=== PATIENT | female | born 1940 | race Caucasian/White ===

== ENCOUNTER → 2020-03-07 | Outpatient (CLI) | payer MEDICARE, SELFPAY | END | disposition home or self-care (01) | LOC: LABSPEC 16:09 | PROVIDERS: Visit Provider Urology | DX: N39.0 Urinary tract infection, site not specified (principal) | CPT/HCPCS: 87086; 87088; 87186 ==

== ENCOUNTER → 2020-05-13 | Outpatient (CLI) | payer MEDICARE, SELFPAY | END | disposition home or self-care (01) | PROVIDERS: Referring Provider Urology; Visit Provider Urology | DX: N39.0 Urinary tract infection, site not specified (principal) | CPT/HCPCS: 87086; 87088; 87186 ==

== ENCOUNTER → 2021-03-21 11:17 | Outpatient (CLI) | payer MEDICARE, SELFPAY ==
[2021-03-21 13:09] LABS: Erythrocyte Sedimentation Rate 44 mm/hr (0-30)
[2021-03-21 13:34] LABS: CRP 6.24 mg/L (0.0-3.0); Rheumatoid Factor < 10.0 IU/mL (<15)
[2021-03-24 13:26] LABS: ANTINUCLEAR ANTIBODIES DIRECT Negative (Negative)
[2021-03-27 00:07] LABS: Aspirgillus flavus Negative (Neg:<1:1); Aspirgillus fumigatus Negative (Neg:<1:1); Aspirgillus niger Negative (Neg:<1:1); Cytoplasmic Ab (C-ANCA) <1:20 titer (Neg:<1:20)
[2021-03-27 08:41] LABS: CCP IgG Antibodies 6 units (0-19); Perinuclear Ab (P-ANCA) <1:20 titer (Neg:<1:20)
== END ==
PROVIDERS: Referring Provider Internal Medicine Critical Care Medicine; Visit Provider Internal Medicine Critical Care Medicine
DX: J84.10 Pulmonary fibrosis, unspecified (principal)
CPT/HCPCS: 36415; 85652; 86038; 86140; 86200; 86225; 86235; 86256; 86431; 86606

== ENCOUNTER → 2021-04-08 10:36 | Outpatient (CLI) | payer MEDICARE, SELFPAY ==
--- NOTE | 2021-04-08 13:49 | PFTCOMP_ITS ---
COMPLETE PULMONARY FUNCTION TEST INTERPRETATION Brief HPI: Patient is an 80 year old female, currently under the care of myself, who presents to [facility] for complete pulmonary function tests secondary to diagnosis of pulmonary fibrosis. Respiratory therapist reports good effort and reproducible results. Interpretation: Forced expiration spirometry shows no large airways obstructive ventilatory defect with an FEV1 of 80% predicted. There is no significant bronchodilator response by strict ATS criteria. Spirograms are of good quality and plateau normally. The respiratory flow volume loop shows a normal pattern. Lung volumes by body plethysmography show a decreased total lung capacity at 3.49 L, 77% predicted. All other lung volumes are reduced symmetrically. Diffusion capacity by carbon monoxide is decreased at 50% predicted. The airway resistance is normal. No previous pulmonary function tests were available for review. Impression: Mild restrictive ventilatory defect with a disproportionate reduction in diffusing capacity
== END ==
PROVIDERS: Referring Provider Internal Medicine Critical Care Medicine; Visit Provider Internal Medicine Critical Care Medicine
DX: J84.10 Pulmonary fibrosis, unspecified (principal)
CPT/HCPCS: 94060; 94726; 94729

== ENCOUNTER → 2021-04-17 12:53 | Outpatient (CLI) | payer MEDICARE, SELFPAY ==
[2021-04-17 13:20] VITALS: PULSE 100; PULSE 103; PULSE 106; PULSE 107; PULSE 86; PULSE 92; PULSE 97; O2SAT 91; O2SAT 92; O2SAT 94; O2SAT 95; O2SAT 98
--- NOTE | 2021-04-18 07:44 | PCM.PSN.6M ---
PSN 6 Minute Walk Test 6 Minute Walk Test 6 Minute Walk Test: 6 Minute Walk Test PSN:6-Minute Walk Test Start: 04/17/21 13:19 Freq: Status: Active Protocol: RESP.6MINW Document 04/17/21 13:20 DARREN (Rec: 04/17/21 13:22 DARREN [id number]) 6 Minute Walk Test Date Performed 04/17/21 Time Performed 13:00 Height 5 ft 3 in Weight: 63.503 kg Weight in Pounds 140.[address]: Feroz Don Assistive device used: None Pre-test Oxygen Delivery Method Room Air Pulse Ox (%) 98 Pulse Rate (60-100 beats/min) 86 Dyspnea Tanya Scale (0-10) 0 Exertion Tanya Scale (6-20) 6 1st minute Oxygen Delivery Method Room Air Pulse Ox (%) 92 Pulse Rate (60-100 beats/min) 97 2nd minute Oxygen Delivery Method Room Air Pulse Ox (%) 94 Pulse Rate (60-100 beats/min) 100 3rd minute Oxygen Delivery Method Room Air Pulse Ox (%) 91 Pulse Rate (60-100 beats/min) 106 H 4th minute Oxygen Delivery Method Room Air Pulse Ox (%) 95 Pulse Rate (60-100 beats/min) 106 H 5th minute Oxygen Delivery Method Room Air Pulse Ox (%) 92 Pulse Rate (60-100 beats/min) 103 H 6th minute Oxygen Delivery Method Room Air Pulse Ox (%) 94 Pulse Rate (60-100 beats/min) 107 H Dyspnea Tanya Scale (0-10) 0 Exertion Tanya Scale (6-20) 11 Post-test Oxygen Delivery Method Room Air Pulse Ox (%) 94 Pulse Rate (60-100 beats/min) 92 Full Laps Walked 20 Partial Lap, Number of Tiles Walked 0 Total Distance Walked (ft) 1180 Interpretation Interpretation: The patient ambulated 1180 feet over the course of 6 minutes beginning on room air without assistive devices. Pretesting oxygen saturation was noted to be 98% on room air. With ambulation, the nicole oxygen saturation was 91%. This represents a significant exertional oxygen desaturation. Recommendations Recommendations: There is no indication for the use of supplemental oxygen at this time. However, close interval follow-up was recommended, given the degree of oxygen desaturation noted during this study.
== END ==
PROVIDERS: Referring Provider Internal Medicine Critical Care Medicine; Visit Provider Internal Medicine Critical Care Medicine
DX: J84.10 Pulmonary fibrosis, unspecified (principal)
CPT/HCPCS: 94618

== ENCOUNTER → 2021-11-20 | Outpatient (CLI) | payer MEDICARE, SELFPAY ==
--- NOTE | 2021-11-20 15:24 | PFTCOMP ---
COMPLETE PULMONARY FUNCTION TEST INTERPRETATION Brief HPI: Patient is an 81-year-old female, currently under the care of myself, who presents to [facility] for complete pulmonary function tests secondary to diagnosis of pulmonary fibrosis. Respiratory therapist reports good effort and reproducible results. Interpretation: Forced expiration spirometry shows no large airways obstructive ventilatory defect with an FEV1 of 89% predicted. There is no significant bronchodilator response by strict ATS criteria. Spirograms are of good quality and plateau normally. The respiratory flow volume loop shows a normal pattern. Lung volumes by body plethysmography show a mildly decreased total lung capacity at 3.13 L, 76% predicted. All other lung volumes are reduced symmetrically. Diffusion capacity by carbon monoxide is decreased at 65% predicted. The airway resistance is normal. Compared to previous pulmonary function tests from 04/08/2021, there has been no significant change. Impression: Mild restrictive ventilatory defect with a symmetric reduction diffusing capacity. This is relatively stable compared to previous testing.
== END | disposition home or self-care (01) ==
LOC: PSN 10:27
PROVIDERS: Referring Provider Internal Medicine Critical Care Medicine; Visit Provider Internal Medicine Critical Care Medicine
DX: J84.10 Pulmonary fibrosis, unspecified (principal)
CPT/HCPCS: 94060; 94726; 94729

== ENCOUNTER → 2021-11-24 | Outpatient (CLI) | payer MEDICARE, SELFPAY ==
[2021-11-24 12:42] VITALS: PULSE 76; PULSE 82; PULSE 88; PULSE 93; PULSE 94; PULSE 97; PULSE 98; O2SAT 95; O2SAT 96; O2SAT 97
--- NOTE | 2021-11-26 11:58 | PCM.PSN.6M ---
PSN 6 Minute Walk Test 6 Minute Walk Test 6 Minute Walk Test: 6 Minute Walk Test PSN:6-Minute Walk Test Start: 11/24/21 12:41 Freq: Status: Active Protocol: RESP.6MINW Document 11/24/21 12:42 [facility] (Rec: 11/24/21 12:45 [facility] [id number]) 6 Minute Walk Test Date Performed 11/24/21 Time Performed 12:30 Height 5 ft 2 in Weight: 140 lb Weight in Pounds 140.[address]: Feroz Don Assistive device used: None Pre-test Pulse Ox (%) 96 Pulse Rate (60-100 beats/min) 76 Dyspnea Tanya Scale (0-10) 0 Exertion Tanya Scale (6-20) 6 1st minute Oxygen Delivery Method Room Air Pulse Ox (%) 97 Pulse Rate (60-100 beats/min) 88 2nd minute Oxygen Delivery Method Room Air Pulse Ox (%) 96 Pulse Rate (60-100 beats/min) 93 3rd minute Oxygen Delivery Method Room Air Pulse Ox (%) 95 Pulse Rate (60-100 beats/min) 94 4th minute Oxygen Delivery Method Room Air Pulse Ox (%) 96 Pulse Rate (60-100 beats/min) 97 5th minute Oxygen Delivery Method Room Air Pulse Ox (%) 96 Pulse Rate (60-100 beats/min) 97 6th minute Oxygen Delivery Method Room Air Pulse Ox (%) 95 Pulse Rate (60-100 beats/min) 98 Dyspnea Tanya Scale (0-10) 0 Exertion Tanya Scale (6-20) 10 Post-test Oxygen Delivery Method Room Air Pulse Ox (%) 97 Pulse Rate (60-100 beats/min) 82 Full Laps Walked 18 Partial Lap, Number of Tiles Walked 28 Total Distance Walked (ft) 1090 Interpretation Interpretation: The patient ambulated 1090 feet over the course of 6 minutes beginning on room air without assistive devices. Pretesting oxygen saturation was noted to be 96% on room air. With ambulation, the nciole oxygen saturation was 95%. There was no significant exertional oxygen desaturation. Recommendations Recommendations: There is no indication for the use of supplemental oxygen at this time.
== END | disposition home or self-care (01) ==
LOC: PSN 12:17
PROVIDERS: Referring Provider Internal Medicine Critical Care Medicine; Visit Provider Internal Medicine Critical Care Medicine
DX: J84.10 Pulmonary fibrosis, unspecified (principal)
CPT/HCPCS: 94618

== ENCOUNTER → 2021-12-03 | Outpatient (CLI) | payer MEDICARE, SELFPAY ==
[2021-12-03 18:24] LABS: Erythrocyte Sedimentation Rate 24 mm/hr (0-30)
[2021-12-03 18:49] LABS: AST(SGOT) 52 U/L (15-37); Alanine Aminotransfer ALT/SGPT 49 U/L (13-56); Albumin, Serum 3.6 g/dL (3.2-5.0); Alkaline Phosphatase 67 U/L (45-117); Bilirubin, Direct 0.12 mg/dL (0.00-0.30); GGTP 16 U/L (5-55); Globulin 4.7 g/dL (2.2-4.2); Protein, Total 8.3 g/dL (6.4-8.2)
[2021-12-05 14:08] LABS: Immunoglobulin A 289 mg/dL (64-422); Immunoglobulin G 1813 mg/dL (586-1602); PROEL- A/G Ratio 0.9 (0.7-1.7); PROEL- Albumin 3.6 g/dL (2.9-4.4); PROEL- Alpha-1 Globulin 0.3 g/dL (0.0-0.4); PROEL- Alpha-2 Globulin 0.8 g/dL (0.4-1.0); PROEL- Beta Globulin 1.1 g/dL (0.7-1.3); PROEL- Gamma Globulin 1.8 g/dL (0.4-1.8); PROEL- TOTAL PROTEIN 7.6 g/dL (6.0-8.5)
[2021-12-05 15:18] LABS: Anti-Mitochondrial AB <20.0 Units (0.0-20.0)
[2021-12-05 15:19] LABS: Immunoglobulin M 161 mg/dL (26-217)
== END | disposition home or self-care (01) ==
LOC: MTLAB 14:37
PROVIDERS: Referring Provider Internal Medicine Gastroenterology; Visit Provider Internal Medicine Gastroenterology
DX: K75.9 Inflammatory liver disease, unspecified (principal)
CPT/HCPCS: 36415; 80076; 82784; 82977; 83516; 84165; 85652; 86334

== ENCOUNTER → 2021-12-26 | Outpatient (CLI) | payer MEDICARE, SELFPAY ==
--- NOTE | 2021-12-26 09:23 | US_ITS ---
STUDY: ABDOMINAL ULTRASOUND - RIGHT UPPER QUADRANT REASON FOR VISIT: Female, 81 years old FATTY LIVER TECHNIQUE: Ultrasound evaluation of the right upper quadrant was performed with real-time and static moncada-scale imaging. TECHNICAL QUALITY: Adequate. COMPARISON: None. FINDINGS: Liver: The liver measures 12.2 cm. There is normal echogenicity of the liver. The bile ducts are within normal limits. There is hepatic color flow. The direction of portal flow is hepatopetal. There is no demonstrated mass lesion. Gallbladder: Normal distended gallbladder. The gallbladder wall measures 1.8 mm. There is a negative sonographic Mancini''s sign. There is no pericholecystic fluid. There are no gallstones. Common Bile Duct (C.B.D.): The common bile duct measures 2.2 mm. Pancreas: Normal size of the head, body and tail of the pancreas. There is increased echogenicity of the pancreas. There is no demonstrated pancreatic mass or cyst. Right Kidney: Normal size of the right kidney. The right kidney measures 11 cm x 3.6 cm x 4.2 cm. Normal renal cortex. The right cortex measures 1.3 cm. There is no demonstrated renal mass or cyst. There is no right hydronephrosis. US/Abdomen Limited IMPRESSION: Normal right upper quadrant ultrasound examination. Electronically Signed: Nick Jaquez MD at 10:35 EDT ,
--- NOTE | 2021-12-26 09:23 | US_ITS ---
STUDY: ABDOMINAL ULTRASOUND - ELASTOGRAPHY REASON FOR VISIT: Female, 81 years old. History of fatty infiltration of the liver. TECHNIQUE: Liver stiffness measurements were obtained on a [employer] RS 85 ultrasound machine using a CA 1-7 probe following the SRU guidelines. 3 measurements were obtained using a 2-D-SWE method. The IQR/M was 21 % suggesting a quality data set. TECHNICAL QUALITY: Adequate. COMPARISON: Comparison is made with prior ultrasound of the right upper quadrant done earlier today. FINDINGS: Liver: There is no demonstrated mass lesion. Median liver stiffness measured 10.5 kPa. US/Elastography Parenchyma/Organ IMPRESSION: Liver stiffness measures 10.5 kPa compatible with F2-F3 (Mild to moderate liver fibrosis) Metavir score. Electronically Signed: Nick Jaquez MD at 10:36 EDT ,
== END | disposition home or self-care (01) ==
PROVIDERS: Visit Provider Internal Medicine Gastroenterology
DX: K76.0 Fatty (change of) liver, not elsewhere classified (principal)
CPT/HCPCS: 76705; 76981

== ENCOUNTER → 2022-06-01 | Outpatient (CLI) | payer MEDICARE, SELFPAY ==
--- NOTE | 2022-06-01 08:36 | RAD_ITS ---
STUDY: X-RAY - ESOPHAGUS (BARIUM SWALLOW) WITH FLUOROSCOPY REASON FOR EXAM: Female, 81 years old. DYSPHAGIA TECHNIQUE: 19 view(s) of the esophagus were obtained following swallowing of barium. FLUOROSCOPY TIME (if supplied): (26 seconds) minutes/seconds COMPARISON: None. FINDINGS: There is no demonstrated esophageal foreign body. There is no demonstrated stricture or mucosal abnormality. Normal gastroesophageal junction, without a demonstrated hiatal hernia. Tertiary contractions of the mid esophagus. The patient ingested a 12 mm tablet of barium without any difficulty. There is atherosclerotic calcification of the aortic arch with tortuosity of the descending aorta. Normal visualized pulmonary parenchyma. There are diffuse degenerative changes of the visualized thoracic spine. RAD/Esophagus Dual Contrast IMPRESSION: History contraction of the mid esophagus. The patient ingested a 12 mm tablet of barium without any difficulty. Electronically Signed: Nick Jaquez MD at 14:28 EST ,
== END | disposition home or self-care (01) ==
LOC: RAD 08:33
PROVIDERS: Visit Provider Otolaryngology
DX: R13.10 Dysphagia, unspecified (principal)
CPT/HCPCS: 74221

== ENCOUNTER → 2022-06-29 | Outpatient (CLI) | payer MEDICARE, SELFPAY ==
[2022-06-29 12:23] LABS: Hematocrit 42.9 % (37-47); Hemoglobin 14.1 g/dL (12.0-15.0); Mean Corp Hgb Conc 32.9 g/dL (32-36); Mean Corpuscular Hgb 29.6 pg (27.0-32.0); Mean Corpuscular Volume 89.9 fL (81-99); Mean Platelet Vol. 9.6 fl (6.2-12.0); Platelet Count 239 K/mm3 (150-450); RBC Distribution Width CV 12.7 % (11.6-14.6); RBC Distribution Width SD 42.4 fl (35.1-43.9); Red Blood Count 4.77 M/mm3 (4.2-5.4); White Blood Count 10.7 K/mm3 (4.4-11.0)
[2022-06-29 12:33] LABS: International Normalized Ratio 1.1; Prothrombin Time (Protime)PT. 14.3 SECONDS (11.7-14.9)
[2022-06-29 12:34] LABS: Partial Thromboplast Time 29.7 Seconds (24.1-36.2)
[2022-06-29 12:58] LABS: ALB/GLOB Ratio 0.6 RATIO (0.9-2.4); AST(SGOT) 70 U/L (15-37); Alanine Aminotransfer ALT/SGPT 39 U/L (13-56); Albumin, Serum 3.3 g/dL (3.2-5.0); Alkaline Phosphatase 59 U/L (45-117); Anion Gap 9 (5-15); BUN 14 mg/dL (7-18); BUN/Creat Ratio 16.1 RATIO (10-20); Calcium,Total 9.8 mg/dL (8.5-10.1); Chloride 102 mmol/L (98-107); Creatinine, Serum 0.87 mg/dL (0.55-1.02); EST Glomerular Filtration Rate 66 mL/min (>60); Est Glom Filt Rate - Afr Amer 80 mL/min (>60); Globulin 5.4 g/dL (2.2-4.2); Glucose 110 mg/dL (74-106); Potassium 3.6 mmol/L (3.5-5.1); Protein, Total 8.7 g/dL (6.4-8.2); Sodium Level 139 mmol/L (136-145)
[2022-06-30 14:41] LABS: AFP, Tumor Marker < 1.8 ng/mL (0.0-8.7)
== END | disposition home or self-care (01) ==
PROVIDERS: Internal Medicine Gastroenterology; Referring Provider Internal Medicine Critical Care Medicine; Visit Provider Internal Medicine Critical Care Medicine
DX: K74.00 Hepatic fibrosis, unspecified (principal); K76.0 Fatty (change of) liver, not elsewhere classified
CPT/HCPCS: 36415; 80053; 82105; 85027; 85610; 85730; 94667

== ENCOUNTER → 2022-06-30 | Outpatient (CLI) | payer MEDICARE, SELFPAY | END | disposition home or self-care (01) | LOC: LABSPEC 10:43 | PROVIDERS: Referring Provider Internal Medicine Critical Care Medicine; Visit Provider Internal Medicine Critical Care Medicine | DX: J84.10 Pulmonary fibrosis, unspecified (principal) | CPT/HCPCS: 87070; 87205 ==

== ENCOUNTER → 2022-07-21 | Outpatient (CLI) | payer MEDICARE, SELFPAY ==
--- NOTE | 2022-07-22 07:34 | PFT ---
INTRODUCTION: The patient is an 81-year-old female that presents for pulmonary function studies secondary to a diagnosis of pulmonary fibrosis. Respiratory therapy reported good patient effort. Bronchodilators were used during testing. INTERPRETATION: Forced expiration spirometry demonstrates no evidence of a large airways obstructive ventilatory defect. There was no significant response to aerosolized bronchodilators. Spirograms are of good quality and plateau normally. Body plethysmography was performed and revealed a decreased TLC to 3.12 L, 72% of predicted, indicative of a mild restrictive ventilatory impairment. Diffusing capacity by single breath CO was reduced at 48% of predicted. IMPRESSION: Mild restrictive ventilatory impairment with disproportionate reduction in diffusing capacity. There has been a 26% reduction in DLCO when compared to PFTs from October 2021.
== END | disposition home or self-care (01) ==
LOC: PSN 09:17
PROVIDERS: Visit Provider Internal Medicine Critical Care Medicine
DX: J84.10 Pulmonary fibrosis, unspecified (principal)
CPT/HCPCS: 94060; 94726; 94729

== ENCOUNTER → 2022-07-30 | Outpatient (CLI) | payer MEDICARE, SELFPAY ==
[2022-07-30 11:38] LABS: Erythrocyte Sedimentation Rate 55 mm/hr (0-30)
== END | disposition home or self-care (01) ==
LOC: PAVLAB 11:19
PROVIDERS: Referring Provider Nurse Practitioner Acute Care; Visit Provider Nurse Practitioner Acute Care
DX: R05.3 Chronic cough (principal)
CPT/HCPCS: 36415; 85652; 86140

== ENCOUNTER → 2022-08-08 | Outpatient (CLI) | payer MEDICARE, SELFPAY ==
--- NOTE | 2022-08-08 08:48 | CT_ITS ---
INDICATION: pulmonary fibrosis -- high resolution cuts please EXAMINATION: CT CHEST WITHOUT CONTRAST - CT Chest W/O Contrast Injection TECHNIQUE: Helically acquired images were obtained of the chest. A radiation dose optimization technique was used for this scan. IV Contrast dosage and agent: None. RADIATION DOSAGE (If Supplied By Facility): CTDIvol = ( 7.71 ) mGy, DLP = ( 229.21 ) mGycm COMPARISON: None. FINDINGS: LUNGS, PLEURA AND LARGE AIRWAYS: Cystic changes/honeycombing pattern in both lung apices worse on the right side and to lesser extent in the lower lungs. Combined paraseptal and centrilobular emphysema. Mild central and left lower lobe bronchiectatic changes. No focal infiltrate is seen. No definite focal pulmonary nodules. THYROID: No thyroid lesions. HEART AND PERICARDIUM: Heart size is normal. No pericardial effusion. CORONARY ARTERIES: Coronary artery calcification not seen. VESSELS: Atherosclerotic calcifications and mild tortuosity of the thoracic aorta. MEDIASTINUM AND [place]: No mediastinal or hilar adenopathy. Esophagus is unremarkable. Small hiatal hernia. UPPER ABDOMEN: No acute pathology. BONES: No suspicious lytic or blastic abnormality. CT/Chest without Contrast IMPRESSION: 1. Panlobular emphysema. 2. Mild to moderate pulmonary fibrosis. 3. No mass, adenopathy or focal acute pulmonary infiltrate. Electronically Signed: Jones Perez MD at 15:21 EDT ,
== END | disposition home or self-care (01) ==
PROVIDERS: Referring Provider Nurse Practitioner Acute Care; Visit Provider Nurse Practitioner Acute Care
DX: J84.10 Pulmonary fibrosis, unspecified (principal); J43.1 Panlobular emphysema
CPT/HCPCS: 71250

== ENCOUNTER → 2023-01-19 | Outpatient (CLI) | payer MEDICARE, SELFPAY ==
[2023-01-19 17:50] LABS: Prothrombin Time (Protime)PT. 13.6 SECONDS (11.7-14.9)
[2023-01-19 17:51] LABS: Hematocrit 44.3 % (37-47); Hemoglobin 14.3 g/dL (12.0-15.0); Mean Corp Hgb Conc 32.3 g/dL (32-36); Mean Corpuscular Hgb 29.4 pg (27.0-32.0); Mean Corpuscular Volume 91.2 fL (81-99); Mean Platelet Vol. 10.4 fl (6.2-12.0); Platelet Count 278 K/mm3 (150-450); RBC Distribution Width CV 12.9 % (11.6-14.6); RBC Distribution Width SD 43.5 fl (35.1-43.9); Red Blood Count 4.86 M/mm3 (4.2-5.4); White Blood Count 10.5 K/mm3 (4.4-11.0)
[2023-01-19 18:18] LABS: ALB/GLOB Ratio 0.7 RATIO (0.9-2.4); AST(SGOT) 49 U/L (15-37); Alanine Aminotransfer ALT/SGPT 32 U/L (13-56); Albumin, Serum 3.4 g/dL (3.2-5.0); Alkaline Phosphatase 68 U/L (45-117); Anion Gap 5 (5-15); BUN 15 mg/dL (7-18); BUN/Creat Ratio 18.1 RATIO (10-20); Calcium,Total 9.7 mg/dL (8.5-10.1); Chloride 104 mmol/L (98-107); Creatinine, Serum 0.83 mg/dL (0.55-1.02); EST Glomerular Filtration Rate 70 mL/min (>60); Est Glom Filt Rate - Afr Amer 85 mL/min (>60); Globulin 4.9 g/dL (2.2-4.2); Glucose 123 mg/dL (74-106); Potassium 3.5 mmol/L (3.5-5.1); Protein, Total 8.3 g/dL (6.4-8.2); Sodium Level 140 mmol/L (136-145)
[2023-01-21 04:07] LABS: AFP, Tumor Marker 1.8 ng/mL (0.0-8.7)
== END | disposition home or self-care (01) ==
LOC: MTLAB 15:10
PROVIDERS: Referring Provider Internal Medicine Gastroenterology; Visit Provider Internal Medicine Gastroenterology
DX: K76.0 Fatty (change of) liver, not elsewhere classified (principal); K74.00 Hepatic fibrosis, unspecified
CPT/HCPCS: 36415; 80053; 82105; 85027; 85610; 85730

== ENCOUNTER → 2023-03-23 | Outpatient (CLI) | payer MEDICARE, SELFPAY ==
--- NOTE | 2023-03-23 10:09 | US_ITS ---
STUDY: ABDOMINAL ULTRASOUND - RIGHT UPPER QUADRANT REASON FOR VISIT: Female, 82 years old CIRRHOSIS TECHNIQUE: Ultrasound evaluation of the right upper quadrant was performed with real-time and static moncada-scale imaging. TECHNICAL QUALITY: Limited. Examination limited due to the patient?s condition. COMPARISON: 12/26/2021. FINDINGS: Liver: The liver measures 13.7 cm. There is normal echogenicity of the liver. The bile ducts are within normal limits. There is hepatic color flow. The direction of portal flow is hepatopetal. There is no demonstrated mass lesion. Gallbladder: Normal distended gallbladder. The gallbladder wall measures 1.5 mm. There is a negative sonographic Mancini''s sign. There is no pericholecystic fluid. There are no gallstones. Common Bile Duct (C.B.D.): The common bile duct measures 3.5 mm. Pancreas: Normal size of the head, body of the pancreas. Tail of the pancreas is suboptimally seen. There is normal echogenicity of the pancreas. There is no demonstrated pancreatic mass or cyst. Right Kidney: Normal size of the right kidney. The right kidney measures 9.3 cm. Normal renal cortex. The right cortex measures 1.0 cm. There is no demonstrated renal mass or cyst. There is no right hydronephrosis. US/Abdomen Limited IMPRESSION: No definite acute or significant abnormality seen. Electronically Signed: Antwan Gaytan MD at 19:30 EST ,
== END | disposition home or self-care (01) ==
LOC: US 10:05
PROVIDERS: Referring Provider Internal Medicine Gastroenterology; Visit Provider Internal Medicine Gastroenterology
DX: K74.60 Unspecified cirrhosis of liver (principal); K76.0 Fatty (change of) liver, not elsewhere classified
CPT/HCPCS: 76705

== ENCOUNTER → 2023-05-17 | Outpatient (CLI) | payer MEDICARE, SELFPAY ==
--- NOTE | 2023-05-17 11:16 | CPS ---
DLCO was attempted x 3 but pt was unable to follow proper technique.
--- NOTE | 2023-05-18 12:49 | PFT ---
INTRODUCTION: The patient is an 82-year-old female who presents for pulmonary function studies secondary to a diagnosis of pulmonary fibrosis. Respiratory therapy reported good patient effort. However, DLCO was unable to be obtained due to inadequate technique. INTERPRETATION: Forced expiration spirometry demonstrates no evidence of a large airways obstructive ventilatory defect. There was no significant response to aerosolized bronchodilators. Body plethysmography was performed and revealed a decreased TLC to 1.36 L, 31% of predicted, indicative of a severe restrictive ventilatory impairment. Diffusing capacity was unable to be obtained. IMPRESSION: Severe restrictive ventilatory impairment. Diffusing capacity was not able to be obtained.
== END | disposition home or self-care (01) ==
PROVIDERS: Referring Provider Internal Medicine Critical Care Medicine; Visit Provider Internal Medicine Critical Care Medicine
DX: J84.10 Pulmonary fibrosis, unspecified (principal)
CPT/HCPCS: 94060; 94726

== ENCOUNTER → 2023-06-09 | Outpatient (CLI) | payer MEDICARE, SELFPAY ==
--- OUTSIDE RECORDS SUMMARY | 2023-06-09 19:53 | XMS RPT_ITS | CCD ---
Author Name Unknown Address [address] [place] [address] Organization [facility] Care Team Providers Care Safe Technician Name Role Phone JAMISON ROSAS, DR ZUÑIGA Primary Care Physician KWABENA SURGICAL SUPERVISOR-LIVESTOCK TRUCKER, TIM Roland Referring Unavaila ble YAMILEX DO, DR MCCLAIN Attending Unavailable JAMISON DO, DR ZUÑIGA Primary Care Unavailable KAPPER SURGICAL SUPERVISOR-LIVESTOCK TRUCKER, TIM Roland Admitting Unavaila ble JAMISON DO, DR ZUÑIGA Attending Unavailable JAMISON DO, DR ZUÑIGA Primary Care Unavailable ROCK SURGICAL SUPERVISOR-LIVESTOCK TRUCKER, OPAL Attending Unavailabl e ROCK SURGICAL SUPERVISOR-LIVESTOCK TRUCKER, OPAL Referring Unavailabl e JAMISON DO, DR ZUÑIGA Primary Care Unavailable JAMISON DO, DR ZUÑIGA Attending Unavailable JAMISON DO, DR ZUÑIGA Primary Care Unavailable JAMISON DO, DR ZUÑIGA Attending Unavailable JAMISON DO, DR ZUÑIGA Primary Care Unavailable JAMISON DO, DR ZUÑIGA Primary Care Unavailable JAMISON DO, DR ZUÑIGA Attending Unavailable JAMISON DO, DR ZUÑIGA Attending Unavailable JAMISON DO, DR ZUÑIGA Primary Care Unavailable JAMISON DO, DR ZUÑIGA Primary Care Unavailable JAMISON DO, DR ZUÑIGA Attending Unavailable LYNN ASTUDILLO, DR SHERWOOD Attending Unavailab le JAMISON DO, DR ZUÑIGA Primary Care Unavailable JAMISON DO, DR ZUÑIGA Attending Unavailable JAMISON DO, DR ZUÑIGA Primary Care Unavailable Medications Current Medications Medication Drug Class(es) Dates Sig (Normalized) Sig (Original) albuterol MDI (90 mcg/inh) CFC free inhalation aerosol (8 sources) Start: 05-01-2022 take 1 puff(s) by inhalation every four hours as needed for wheezing albuterol MDI (90 mcg/inh) CFC free inhalation aerosol 1 puff(s), Inhalation, q4h, PRN as needed for wheezing, # 8.5 gram(s), 0 Refill(s), [id number], 155, cm, 01/29/22 10:06:00 EDT, Height Start Date: 05/01/22 Status: Ordered amLODIPine 5 mg oral tablet (13 sources) Dihydropyridine Calcium Channel Orestes Start: 10-22-2022 amLODIPine 5 mg oral tablet Dose : 5 mg = 1 tab(s), Oral, qDay, # 90 tab(s), 1 Refill(s), Pharmacy: [facility], 155, cm, 10/05/22 10:19:00 EDT, Height, kg, 10/05/22 10:19:00 EDT, Dosing Weight Start Date: 10/22/22 Status: Ordered Completed/Discontinued Medications Medication Drug Class(es) Dates Sig (Normalized) Sig (Original) gabapentin 300 mg oral capsule (1 source) Anti-epileptic Agent Start: 12-25-2022 End: 01-24-2023 gabapentin 300 mg oral capsule Dose : 300 mg = 1 cap(s), Oral, TID, # 90 cap(s), 0 Refill(s), [id number], Postherpetic neuralgia, 155, cm, 12/25/22 11:22:00 EDT, Height, 61.6, kg, 12/25/22 11:22:00 EDT, Dosing Weight Start Date: 12/25/22 Stop Date: 01/24/23 Status: Ordered nitrofurantoin, macrocrystals 50 mg oral capsule (1 source) Nitrofuran Antibacterial Start: 03-20-2023 nitrofurantoin macrocrystals 50 mg oral capsule Dose : 50 mg = 1 cap(s), Oral, qDay, 0 Refill(s), 59.2 Start Date: 03/20/23 Status: Ordered Problems Active Problems Problem Classification Problem Date Documented Date Episodic/Chronic Congestive heart failure; nonhypertensive (2 sources) Chronic diastolic heart failure; Translations: [Chronic diastolic (congestive) heart failure] Chronic Diabetes mellitus without complication (1 source) Hyperglycemia; Translations: [Hyperglycemia, unspecified] Episodic Diverticulosis and diverticulitis (13 sources) Diverticular disease 12-27-2020 Chronic Esophageal disorders (10 sources) Gastroesophageal reflux disease 04-10-2021 Chronic Essential hypertension (17 sources) Hypertensive disorder; Translations: [Essential hypertension] Onset: 3 07-02-2020 Chronic Hemorrhoids (13 sources) Internal hemorrhoids 12-27-2020 Episodic Hypertension with complications and secondary hypertension (1 source) Hypertensive heart failure; Translations: [Hypertensive heart disease with heart failure] Chronic Immunity disorders (8 sources) Patient immunocompromised 09-03-2022 Chronic Immunizations and screening for infectious disease (1 source) Abnormal finding on evaluation procedure; Translations: [Other specified abnormal immunological findings in serum] Episodic Menopausal disorders (13 sources) Atrophic vaginitis 06-06-2019 Chronic Nutritional deficiencies (14 sources) Vitamin D deficiency; Translations: [Vitamin D deficiency, unspecified] 07-02-2020 Chronic Nutritional deficiencies (10 sources) Iron deficiency 04-10-2021 Episodic Other and unspecified benign neoplasm (13 sources) Tubular adenoma 12-27-2020 Episodic Other bone disease and musculoskeletal deformities (13 sources) Osteopenia 06-30-2019 Episodic Other bone disease and musculoskeletal deformities (1 source) Disorder of bone; Translations: [Other specified disorders of bone density and structure, unspecified site] Episodic Other connective tissue disease (1 source) Pain in left arm; Translations: [Pain in left arm] Episodic Other diseases of bladder and urethra (13 sources) Overactive bladder 12-29-2019 Chronic Other liver diseases (8 sources) Hepatic fibrosis 01-29-2022 Chronic Other liver diseases (8 sources) Inflammatory disease of liver 08-25-2022 Chronic Other liver diseases (9 sources) Elevated liver enzymes level 07-31-2021 Episodic Other lower respiratory disease (11 sources) Fibrosis of lung; Translations: [Pulmonary fibrosis, unspecified] Onset: 3 01-29-2022 Chronic Other lower respiratory disease (1 source) Dyspnea; Translations: [Other forms of dyspnea] Episodic Other lower respiratory disease (1 source) Dyspnea on exertion 05-24-2023 Episodic Other lower respiratory disease (2 sources) Other forms of dyspnea; Translations: [Other forms of dyspnea] Onset: 4 Episodic Other screening for suspected conditions (not mental disorders or infectious disease) (3 sources) Computed tomography result abnormal 09-12-2020 Chronic Other screening for suspected conditions (not mental disorders or infectious disease) (11 sources) CT of chest abnormal; Translations: [Antineutrophil cytoplasmic antibody positive] 04-10-2021 Episodic Residual codes; unclassified (13 sources) Peripheral edema 06-30-2019 Episodic Retinal detachments; defects; vascular occlusion; and retinopathy (14 sources) Degenerative disorder of macula ; Translations: [Age related macular degeneration] Onset: 12-29-2019 Chronic Systemic lupus erythematosus and connective tissue disorders (8 sources) Systemic lupus erythematosus 01-29-2022 Chronic Urinary tract infections (13 sources) Chronic cystitis 06-06-2019 Chronic Urinary tract infections (13 sources) Recurrent urinary tract infection 06-30-2019 Episodic Viral infection (6 sources) Herpes zoster 12-02-2022 Episodic Past or Other Problems Problem Classification Problem Date Documented Da te Episodic/Chronic Spondylosis; intervertebral disc disorders; other back problems (2 sources) Dorsalgia, unspecified; Translations: [Dorsalgia, unspecified] Onset: 09-03-2022 Episodic Results Test Name Value Interpretation Reference Range Facil ity Vital Signs Date Time Vital Sign Value Performing Clinician Faci lity 03-22-2023 10:53-0500 Body temperature 97.7 [degF] TIM YUAN SURGICAL SUPERVISOR-LIVESTOCK TRUCKER [facility] 03-22-2023 10:53-0500 Diastolic Blood Pressure Non-Invasive 81 mm[Hg] TIM YUAN SURGICAL SUPERVISOR-LIVESTOCK TRUCKER [facility] 03-22-2023 10:53-0500 Heart rate 103 /min TIM YUAN SURGICAL SUPERVISOR-LIVESTOCK TRUCKER [facility] 03-22-2023 10:53-0500 Reason For Taking VItal Signs TIM YUAN SURGICAL SUPERVISOR-LIVESTOCK TRUCKER [facility] 03-22-2023 10:53-0500 Respiratory rate 20 /min TIM YUAN SURGICAL SUPERVISOR-LIVESTOCK TRUCKER [facility] 03-22-2023 10:53-0500 Systolic Blood Pressure Non-Invasive 119 mm[Hg] TIM YUAN SURGICAL SUPERVISOR-LIVESTOCK TRUCKER [facility] 03-22-2023 10:26-0500 Heart rate 102 /min TIM KAPPER SURGICAL SUPERVISOR-LIVESTOCK TRUCKER [facility] 03-22-2023 10:26-0500 Respiratory rate 22 /min TIM KAPPER SURGICAL SUPERVISOR-LIVESTOCK TRUCKER [facility] 03-22-2023 08:14-0500 Body temperature 97.52 [degF] TIM KAPPER SURGICAL SUPERVISOR-LIVESTOCK TRUCKER [facility] 03-22-2023 08:14-0500 Diastolic Blood Pressure Non-Invasive 64 mm[Hg] TIM KAPPER SURGICAL SUPERVISOR-LIVESTOCK TRUCKER [facility] 03-22-2023 08:14-0500 Heart rate 90 /min TIM KAPPER SURGICAL SUPERVISOR-LIVESTOCK TRUCKER [facility] 03-22-2023 08:14-0500 Reason For Taking VItal Signs TIMDavid GARVINER SURGICAL SUPERVISOR-LIVESTOCK TRUCKER [facility] 03-22-2023 08:14-0500 Respiratory rate 20 /min TIM KAPPER SURGICAL SUPERVISOR-LIVESTOCK TRUCKER [facility] 03-22-2023 08:14-0500 Systolic Blood Pressure Non-Invasive 142 mm[Hg] TIM KAPPER SURGICAL SUPERVISOR-LIVESTOCK TRUCKER [facility] 03-22-2023 05:58-0500 Heart rate 68 /min TIM KAPPER SURGICAL SUPERVISOR-LIVESTOCK TRUCKER [facility] 03-22-2023 05:20-0500 Body temperature 97.52 [degF] TIM KAPPER SURGICAL SUPERVISOR-LIVESTOCK TRUCKER [facility] 03-22-2023 05:20-0500 Diastolic Blood Pressure Non-Invasive 70 mm[Hg] TIM KAPPER SURGICAL SUPERVISOR-LIVESTOCK TRUCKER [facility] 03-22-2023 05:20-0500 Heart rate 68 /min TIM KAPPER SURGICAL SUPERVISOR-LIVESTOCK TRUCKER [facility] 03-22-2023 05:20-0500 Systolic Blood Pressure Non-Invasive 118 mm[Hg] TIM KAPPER SURGICAL SUPERVISOR-LIVESTOCK TRUCKER [facility] 03-21-2023 23:17-0500 Heart rate 72 /min TIM KAPPER SURGICAL SUPERVISOR-LIVESTOCK TRUCKER [facility] 03-21-2023 20:10-0500 Heart rate 89 /min TIM KAPPER SURGICAL SUPERVISOR-LIVESTOCK TRUCKER [facility] 03-21-2023 18:46-0500 Heart rate 83 /min TIM KAPPER SURGICAL SUPERVISOR-LIVESTOCK TRUCKER [facility] 03-21-2023 15:10-0500 Heart rate 92 /min TIM KAPPER SURGICAL SUPERVISOR-LIVESTOCK TRUCKER [facility] 03-21-2023 15:10-0500 Reason For Taking VItal Signs TIM KAPPER SURGICAL SUPERVISOR-LIVESTOCK TRUCKER [facility] 03-20-2023 16:41-0500 Body height 160 cm TIM KAPPER SURGICAL SUPERVISOR-LIVESTOCK TRUCKER [facility] 03-20-2023 16:41-0500 Body weight 57.5 kg TIM KAPPER SURGICAL SUPERVISOR-LIVESTOCK TRUCKER [facility] 03-20-2023 16:41-0500 Body weight 22.46 kg/m2 TIM KAPPER SURGICAL SUPERVISOR-LIVESTOCK TRUCKER [facility] 03-20-2023 16:39-0500 Body height 160 cm TIM KAPPER SURGICAL SUPERVISOR-LIVESTOCK TRUCKER [facility] 03-20-2023 16:39-0500 Body weight 57.5 kg TIM VIRGIEER SURGICAL SUPERVISOR-LIVESTOCK TRUCKER [facility] 03-20-2023 16:39-0500 Body weight 22.46 kg/m2 TIM KAPPER SURGICAL SUPERVISOR-LIVESTOCK TRUCKER [facility] 03-20-2023 16:38-0500 Body height 160 cm TIM KAPPER SURGICAL SUPERVISOR-LIVESTOCK TRUCKER [facility] 03-20-2023 16:38-0500 Body weight 57.5 kg TIM VIRGIEER SURGICAL SUPERVISOR-LIVESTOCK TRUCKER [facility] 03-20-2023 16:38-0500 Body weight 22.46 kg/m2 TIM KAPPER SURGICAL SUPERVISOR-LIVESTOCK TRUCKER [facility] Encounters Encounter Date Encounter Type Care Provider Facility Start: 05-24-2023 End: 05-25-[address] KAELA BAILEY MD Facility:B Start: 05-24-2023 End: 05-24-[address] KAELA BAILEY MD [facility] Start: 05-12-2023 End: 05-13-[address] ZARA SWIFT DO Facility:[facility] Start: 05-12-2023 End: 05-12-[address] ZARA SWIFT DO [facility] Start: 04-27-2023 End: 04-28-[address] ZARA SWIFT DO Facility:[facility] Start: 04-27-2023 End: 04-27-[address] ZARA SWIFT DO [facility] Start: 03-20-2023 End: 03-22-2023 ambulatory TIM YUAN SURGICAL SUPERVISOR-LIVESTOCK TRUCKER Facility:B Start: 03-20-2023 End: 03-22-2023 Observation TIM Roland KWABENA SURGICAL SUPERVISOR-LIVESTOCK TRUCKER [facility] Start: 02-26-2023 End: 03-03-[address] ZARA SWIFT DO Facility:[facility] Start: 02-26-2023 End: 02-27-[address] ZARA SWIFT DO Facility:[facility] Start: 02-26-2023 End: 02-26-[address] ZARA SWIFT DO [facility] Start: 10-09-2022 End: 02-03-2023 ambulatory OPAL STAFFORD SURGICAL SUPERVISOR-LIVESTOCK TRUCKER Facility:B Start: 10-09-2022 End: 02-03-2023 [facility] Start: 09-10-2022 End: 09-11-[address] ZARA SWIFT DO Facility:[facility] Start: 09-10-2022 End: 09-10-[address] ZARA SWIFT DO [facility] Start: 09-03-2022 End: [address] ZARA SWIFT DO Facility:[facility] Start: 09-03-2022 End: 09-07-[address] ZARA SWIFT DO [facility] Start: 06-09-[address] ZARA SWIFT DO Fac ility:B Start: 11-07-2021 End: 11-07-[address] ZARA SWIFT DO [facility] Start: 07-24-2021 End: 07-24-[address] ZARA SWIFT DO [facility] Start: 03-14-2021 End: 03-14-[address] ZARA SWIFT DO [facility] Start: 02-27-2021 End: 02-27-[address] ZARA SWIFT DO [facility] Start: 02-18-2021 End: 02-18-[address] ZARA SWIFT DO [facility] Procedures Date Procedure Procedure Detail Performing Clinician Start: 05-12-[address] KAELA BAILEY MD Start: 05-12-[address] ABDIFATAH BAILEY MD Start: 04-27-[address] KAELA WASHINGTON MD Start: 07-17-2021 Bilateral cataracts (disorder) DR ZARA SWIFT DO Immunizations Immunization Date Immunization Notes Care Provider [facility] 03-22-2023 Influenza vaccine, quadrivalent, adjuvanted TIM YUAN SURGICAL SUPERVISOR-LIVESTOCK TRUCKER [facility] 09-23-2021 SARS-CoV-2 (COVID-19 ) mRNA-[address] ZARA SWIFT DO [facility] 04-02-2021 SARS-CoV-2 (COVID-19 ) mRNA-[address] ZARA SWIFT DO [facility] 02-12-2021 influenza virus vacc ine, unspecified formulation DR ZARA SWIFT DO [facility] 06-24-2020 COVID-19, mRNA, LNP- S, PF, 100 mcg/ 0.5 mL dose; Translations: [Moderna COVID-19 Vaccine] DR ZARA SWIFT DO [facility] 05-27-2020 SARS-CoV-2 (COVID-19 ) mRNA-[address] ZARA SWIFT DO [facility] 01-31-2019 influenza virus vacc ine, unspecified formulation DR ZARA SWIFT DO [facility] 10-27-2018 pneumococcal polysaccharide vaccine, [address] ZARA SWIFT DO [facility] 02-08-2018 influenza virus vacc ine, unspecified formulation DR ZARA SWIFT DO [facility] 02-06-2017 influenza virus vacc ine, unspecified formulation DR ZARA SWIFT DO [facility] 01-31-2017 influenza virus vacc ine, unspecified formulation DR ZARA SWIFT DO [facility] 02-11-2016 influenza virus vacc ine, unspecified formulation DR ZARA SWIFT DO [facility] 01-31-2015 influenza virus vacc ine, unspecified formulation DR ZARA SWIFT DO [facility] 10-23-2014 pneumococcal conjuga te vaccine, [address] ZARA SWIFT DO [facility] 01-31-2014 influenza virus vacc ine, unspecified formulation DR ZARA SWIFT DO [facility] 06-19-2011 tetanus toxoid, redu bud diphtheria toxoid, and acellular pertussis vaccine, adsorbed DR ZARA SWIFT DO [facility] 03-30-2005 pneumococcal polysaccharide vaccine, [address] ZARA SWIFT DO [facility] Payers Date Payer Category Payer Private Health Insurance [id number] 1940 Unknown [id number] [id number] [id number] 1940 Unknown [id number] 2.16.8 [id number] 1940 Unknown [id number] 2.16.8 [id number] 1940 Unknown [id number] 2.16.8 [id number] 1940 Unknown [id number] 2.16.8 [id number] 1940 Unknown [id number] 2.16.8 [id number] 1940 Unknown [id number] 2.16.8 [id number] 1940 Unknown [id number] 2.16.8 [id number] 1940 Unknown [id number] 2.16.8 [id number] 1940 Unknown [id number] 2.16.8 [id number] Social History Date Type Detail Facility Start: 01-26-2019 Never smoked tobacco (f inding) [facility] Functional Status Date Assessment Result Facility 03-22-2023 Functional Status Room check performed [facility] 03-22-2023 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, 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, 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, Housework, Laundry, Meal preparation, Personal ADL, Shopping, Social participation [facility] 03-22-2023 Functional Status [facility] 03-21-2023 Functional Status 7pm-7am [facility] 03-21-2023 Functional Status Sequential Com pression Device bilateral knee high applied/on [facility] 03-21-2023 Functional Status [facility] 03-20-2023 Functional Status [facility] 03-20-2023 Functional Status Dinner Percent 100 [facility] 03-20-2023 Functional Status [facility] 03-20-2023 Functional Status [facility] 10-09-2022 Functional Status Home Living Ad ditional Information Objective: Cardiovascular Screen: BP:102/70 HR: 83 BPM O2 sat: 97% Observation: Mild excess thoracic kyphosis. Cervical AROM: Flex: no loss Ext: min loss, Rotation: R: min loss L: min loss MMT: see chart Special Tests: , Spurlings:-, Negative hoffmans and inverted supinator sign Sensation:Grossly intact and symmetrical to light touch except L middle finger decreased light touch Reflexes1+ bilat biceps and triceps Special tests: okay sign: +, Froments:-, Shoulder Abduction sign: + Hand: Limited pointer finger flexion, limited hand opposition from pointer to thumb [facility] Mental Status Date Assessment Result Facility 03-22-2023 Mental Status Oriented x 4 [facility] 03-22-2023 Mental Status [facility] 03-21-2023 Mental Status [facility] Clinical Notes 11-07-2021 to 05-12-2023 Note Date & Type Note Facility 05-12-2023 Note ORIGINAL NM MYOCARDIAL SPECT STRESS/REST CLINICAL STATEMENT: MCDUFFIE TECHNIQUE: Lexiscan dose:0.4 mg Radiopharmaceutical (stress): Tc-99m Sestamibi Dose:32.1 mCi Radiopharmaceutical (rest): Tc-99m Sestamibi Dose:10.8 mCi SPECT acquisition and processing Reconstruction and reorientation of SPECT images into short axis, vertical and horizontal long axis planes Quantitative LVEF assessment COMPARISON:None REPORT:Overall, image quality is fair. Rotating planar images show no significant patient motion. SPECT perfusion images during rest and stress show homogenous radiotracer uptake. No defects to suggest ischemia or infarction. SDS is 0. GATED SPECT images show normal LV size and function. LVEF calculated at 68% IMPRESSION: 1. No evidence for ischemia. 2. No evidence for infarction. 3. Normal LV size and function. 4. No previous for comparison. Interpreted By: Cullen Izaguirre Preliminary Report By: Cullen Izaguirre Electronically Signed By: Cullen Izaguirre Dictated Date: 05/12/2023 3:27:41 PM Prelim Date: 05/12/2023 3:27:41 PM Sign Date: 05/12/2023 3:33:29 PM Ordering Provider:Zara Swift [facility] 12-26-2023 Note ORIGINAL EXAMINATION: CTA OF THE CHEST 04/27/2023 11:17 am TECHNIQUE: CTA of the chest was performed after the administration of intravenous contrast. Multiplanar reformatted images are provided for review. MIP images are provided for review. Automated exposure control, iterative reconstruction, and/or weight based adjustment of the mA/kV was utilized to reduce the radiation dose to as low as reasonably achievable. COMPARISON: March 14, 2020 HISTORY: ORDERING SYSTEM PROVIDED HISTORY: Reason for Exam: MCDUFFIE, hypoxia FINDINGS: Lungs and pleura: There is bilateral predominantly subpleural interlobular septal thickening, with associated ground-glass opacity and honeycombing. Findings are most extensive at the left lung base and bilateral lung apices. Findings appear worsened when compared with March 14, 2021. There is no focal confluent consolidation to suggest pneumonia. No pleural effusion or pneumothorax is identified. Trachea and bronchi: The trachea and bronchi are patent. Mild bilateral bronchiectasis. Mediastinum and ty: There is no mediastinal lymphadenopathy. There is a right hilar 1.4 x 1.2 cm enlarged lymph node. Enlarged left hilar lymph node measures up to 1.5 x 1.4 cm. Heart and pericardium: The heart is enlarged. There is no pericardial effusion. Vessels: The vessels are normal in caliber. Vessels appear mildly tortuous. There is no main, interlobar, segmental or subsegmental pulmonary arterial embolus. Soft tissues: Visualized thyroid gland is unremarkable. Other soft tissues including chest wall are normal. Bones: No aggressive osseous lesion. Upper abdomen: There is a moderately sized hiatal hernia. Visualized portions of the arterially enhanced upper abdomen are otherwise unremarkable. IMPRESSION: No CT evidence of pulmonary embolus. Worsened extent of left greater than right subpleural interstitial lung disease. Bilateral hilar lymphadenopathy. Cardiomegaly. Interpreted by: Priya Payne Preliminary Report By: Priya Payne Electronically signed By Priya Payne Dictated Date: 04/27/2023 1:58:32 PM Prelim Date: 04/27/2023 2:22:01 PM Sign Date: 04/27/2023 2:22:01 PM Ordering Provider: [facility]11-20-2023 Note Discharge Instructions Thank you for allowing [facility] to assist you with your healthcare needs. The following is importantdischarge information regarding your hospital visit. Your Care Team [facility] Your Diagnosis Hypertension Macular degeneration Pulmonary fibrosis Shortness of breath What to do next Instructions From Your Doctor You were admitted on 03/20 due to worsening shortness of breath and low oxygen saturations on room air, 82%. We have treated you with Ceftriaxone 1 gram IV daily as well as IV methylprednisolone. Youhave responded well and have been on room air with acceptable oxygen saturations. We checked for atypical causes of pneumonia including legionella and mycoplasma - those were negative. We checked forstreptococcus pneumoniae and it was negative. We performed a respiratory pathogens panel and this was negative. Because you responded well to this antibiotic, we will discharge you home on Cefdinir 300 mg oral twice daily. We will also send you home on a steroid taper. Please take all of the antibiotic and steroid as prescribed. We checked an ambulatory pulse ox and you did drop to 89% with ambulation on room air, however, to qualify for oxygen you need to drop below 88%. We recommend that you follow-up with Dr. Don and Dr. Swift for post-hospitalization follow-up as soon as possible. Scheduled Follow-Up Appointments Appointment Type When With Where Contact InformationPC OV 08/27/2023 11:30 AM EDT ZARA SWIFT DO [address] [id number] Follow Up Appointments Follow Up with FEROZ DON MD When Why: Call to schedule an appointment Where: [id number] [facility] [place] [address] Follow Up with ZARA SWIFT DO When Within 2-4 days Why: Please call to schedule your post-hospital follow-up appointment. Where: [facility] [place] [address]- [phone] The Following Activity and Diet Have Been Ordered for You Discharge Activity - Ordered -- Resume your pre-hospitalization activity, 03/22/23 12:32:00 EST Discharge Diet - Ordered -- No changes were made to your diet during your hospital stay. Please resume your pre hospitalization diet on discharge., 03/22/23 12:32:00 EST Allergies NKA Immunizations This Visit Given Vaccine Dateinfluenza virus vaccine, inactivated 03/22/2023 Medications Please ask your primary doctor or pharmacist before taking any other medication not listed, including over the counter drugs, herbal medications, vitamins and or supplements as they may interact withyour home medications. What How Much When Instructions Last Dose New cefdinir (cefdinir 300 mg oral capsule) 1 cap by mouth Every 12 hours Duration: 4 Days Pickup at [facility]/pharmacy #[id number] New predniSONE (prednisone 10mg tab (TAPER)) Taper 74-07-07-30-20-10 x 1 day by mouth Once a day (in the morning) Duration: 6 Days Pickup at [facility]/pharmacy #[id number] Unchanged albuterol (albuterol MDI (90 mcg/ inh) CFC free inhalation aerosol) 1 puff(s) by inhalation Every 4 hours as needed for as needed for wheezing Unchanged amLODIPine (amLODIPine 5 mg oral tablet) 1 tab(s) by mouth Once a day Unchanged ferrous sulfate Unknown Strength (NEEDS CLARIFIED) by mouth 1 tab daily Unchanged hydrochlorothiazide-lisinopril (hydrochlorothiazide-lisinopril 25 mg- 20 mg oral tablet) See instructions TAKE 1 TABLET EVERY DAY Unchanged multivitamin with minerals (PreserVision AREDS 2) 1 tab(s) by mouth Two (2) times a day Unchanged nitrofurantoin (nitrofurantoin macrocrystals 50 mg oral capsule) 1 cap by mouth Once a day Unchanged omeprazole (omeprazole 40 mg oral delayed release capsule) 1 cap by mouth Once a day Unchanged potassium chloride (potassium chloride 10 mEq oral capsule, extended release) See instructions TAKE 2 CAPSULES EVERY DAY Pharmacy Information [facility]/pharmacy #[id number]: [address], [place] [phone] Please take this list to your next doctor s visit. Bring all medications you take, including over the counter medications, herbals and other supplements with you to your doctor s visit. Patients and families are reminded to discard old lists and to update any records with all medication providers or retail pharmacies. Medication Leaflets influenza virus vaccine (injection) (IN floo EN za VYE luisana VAK seen) Afluria PF Quadrivalent , Afluria Quadrivalent , Fluad Quadrivalent PF ,Fluarix PF Quadrivalent , Flublok Quadrivalent , Flucelvax PF Quadrivalent , Flucelvax Quadrivalent , FluLaval PF Quadrivalent , Fluzone High-Dose Quadrivalent PF , Fluzone PF Quadrivalent , Fluzone Quadrivalent What is the most important information I should know about this vaccine? Influenza virus vaccine is made from 'killed viruses' and will not cause you to become ill with theflu virus. What is influenza virus vaccine? Influenza virus ('the flu') is a contagious disease caused by a virus that can spread from one person to another through the air or on surfaces. Flu symptoms include fever, chills, tiredness, aches, sore throat, cough, vomiting, and diarrhea. The flu can also cause sinus infections, ear infections,bronchitis, or serious complications such as pneumonia. Influenza causes thousands of deaths each year, and hundreds of thousands of hospitalizations. Influenza is most dangerous in children, women, older adults, and people with weak immune systems or health problems such as diabetes, heart disease, or cancer. Influenza virus vaccine is for use in adults and children at least 6 months old, to prevent infection caused by influenza virus. This vaccine helps your body develop immunity to the disease, but willnot treat an active infection you already have. Influenza virus vaccine is redeveloped each year to contain specific strains of inactivated (killed) flu virus that are recommended by public health officials for that year. The injectable influenza virus vaccine (flu shot) is made from 'killed viruses.' Influenza virus vaccine is also available in a nasal spray form, which is a 'live virus' vaccine. This medication guide addresses only the injectable form of this vaccine. Like any vaccine, influenza virus vaccine may not provide protection from disease in every person. What should I discuss with my healthcare provider before receiving this vaccine? You may not be able to receive this vaccine if you are allergic to eggs, or if you have ever had a severe allergic reaction to a flu vaccine. Tell your vaccination provider if you have: a weak immune system (caused by disease or by using certain medicine); or a history of Guillain-[place] syndrome (within 6 weeks after receiving a flu vaccine). You can still receive a vaccine if you have a minor cold. In the case of a more severe illness witha fever or any type of infection, wait until you get better before receiving this vaccine. Tell your vaccination provider if you are or . The Centers for Disease Control and Prevention recommends that women get a flu shot duringany trimester of to protect themselves and their babies from flu. The nasal sprayform of influenza vaccine is not recommended for use in women. How is this vaccine given? Some brands of this vaccine are made for use in adults and not in children. Your child's vaccination provider can recommend the best influenza virus vaccine for your child. This vaccine is given as an injection (shot) into a muscle. Children 6 months to 8 years old may need a second flu shot 4 weeks after receiving the first vaccine. The influenza virus vaccine is usually given in January or March. Follow your doctor's instructions or the schedule recommended by your local health department. Since the influenza virus vaccine is redeveloped each year for specific strains of influenza, you should receive a flu vaccine every year. What happens if I miss a dose? Call your doctor if you forget to receive your yearly flu shot in January or March, or if your child misses a booster dose. What happens if I overdose? An overdose of this vaccine is unlikely to occur. What should I avoid before or after receiving this vaccine? Follow your vaccination provider's instructions about any restrictions on food, beverages, or activity. What are the possible side effects of influenza virus vaccine? Get emergency medical help if you have signs of an allergic reaction: hives; difficulty breathing; swelling of your face, lips, tongue, or throat. You should not receive a booster vaccine if you had a life threatening allergic reaction after the first shot. Keep track of any and all side effects you have. If you receive an influenza virus vaccine in the future, you will need to tell the vaccination provider if the previous shot caused any side effects. Influenza virus vaccine is made from 'killed viruses' and will not cause you to become ill with theflu virus. You may have flu-like symptoms at any time during flu season that may be caused by otherstrains of influenza virus. Call your doctor at once if you have: a light-headed feeling, like you might pass out; severe weakness or unusual feeling in your arms and legs; numbness, pain, tingling, burning or prickly feeling; vision or hearing problems; or a fever higher than 101 degrees F. Common side effects may include: pain, redness, tenderness, swelling, bruising, or a hard lump where the shot was given; diarrhea, loss of appetite; muscle pain; headache, tiredness; or fussiness, crying, or drowsiness in a child. This is not a complete list of side effects and others may occur. Call your doctor for medical advice about side effects. You may report vaccine side effects to the [place] Department of Health and Human Services at . What other drugs will affect influenza virus vaccine? If you are using any of these medications, you may not be able to receive the vaccine, or may need to wait until the other treatments are finished: steroid medicine; medications to treat psoriasis, rheumatoid arthritis, or other autoimmune disorders; or medicines to treat or prevent organ transplant rejection. This list is not complete. Other drugs may affect influenza virus vaccine, including prescription and bkjf-slg-xkhizwd medicines, vitamins, and herbal products. Not all possible drug interactions arelisted here. Where can I get more information? Your vaccination provider, pharmacist, or doctor can provide more information about this vaccine. Additional information is available from your local health department or the Centers for Disease Control and Prevention. Remember, keep this and all other medicines out of the reach of children, never share your medicines with others, and use this medication only for the indication prescribed. Every effort has been made to ensure that the information provided by [employer]. ('[employer]') is accurate, up-to-date, and complete, but no guarantee is made to that effect. Drug information contained herein may be time sensitive. [employer] information has been compiled for use by healthcare practitioners and consumers in the [place] and therefore [employer] does not warrant that uses outside of the [place] are appropriate, unless specifically indicated otherwise. [employer] drug information does not endorse drugs, diagnose patients or recommend therapy. [employer] drug information isan informational resource designed to assist licensed healthcare practitioners in caring for their p atients and/or to serve consumers viewing this service as a supplement to, and not a substitute for, the expertise, skill, knowledge and judgment of healthcare practitioners. The absence of a warningfor a given drug or drug combination in no way should be construed to indicate that the drug or drug combination is safe, effective or appropriate for any given patient. [employer] does not assume any responsibility for any aspect of healthcare administered with the aid of information [employer] provides. The information contained herein is not intended to cover all possible uses, directions, precautions, warnings, drug interactions, allergic reactions, or adverse effects. If you have questions about the drugs you are taking, check with your doctor, nurse or pharmacist. Copyright 8165-5355 [employer]. Version: 12.. Revision Date: 12/02/2022. Education Materials Pulmonary Fibrosis Pulmonary fibrosis is a type of lung disease that causes scarring. Over time, the scar tissue builds up in the air sacs of your lungs (alveoli). This makes it hard for you to breathe. Less oxygen canget into your blood. Scarring from pulmonary fibrosis gets worse over time. This damage is permanent and may lead to other serious health problems. What are the causes? There are many different causes of pulmonary fibrosis. Sometimes the cause is not known. This is called idiopathic pulmonary fibrosis. Other causes include: Exposure to chemicals and substances found in agricultural, farm, construction, or factory work. These include mold, asbestos, silica, metal dusts, and toxic fumes. Sarcoidosis. In this disease, areas of inflammatory cells (granulomas) form and most often affect the lungs. Autoimmune diseases. These include diseases such as rheumatoid arthritis, systemic sclerosis, or connective tissue disease. Taking certain medicines. These include drugs used in radiation therapy or used to treat seizures, heart problems, and some infections. What increases the risk? You are more likely to develop this condition if: You have a family history of the disease. You are older. The condition is more common in older adults. You have a history of smoking. You have a job that exposes you to certain chemicals. You have gastroesophageal reflux disease (GERD). What are the signs or symptoms? Symptoms of this condition include: Difficulty breathing that gets worse with activity. Shortness of breath (dyspnea). Dry, hacking cough. Rapid, shallow breathing during exercise or while at rest. Bluish skin and lips. Loss of appetite. Weakness. Weight loss and fatigue. Rounded and enlarged fingertips (clubbing). How is this diagnosed? This condition may be diagnosed based on: Your symptoms and medical history. A physical exam. You may also have tests, including: A test that involves looking inside your lungs with an instrument (bronchoscopy). Imaging studies of your lungs and heart. Tests to measure how well you are breathing (pulmonary function tests). Blood tests. Tests to see how well your lungs work while you are walking (pulmonary stress test). A procedure to remove a lung tissue sample to look at it under a microscope (biopsy). How is this treated? There is no cure for pulmonary fibrosis. Treatment focuses on managing symptoms and preventing scarring from getting worse. This may include: Medicines, such as: ? Steroids to prevent permanent lung changes. ? Medicines to suppress your body's defense system (immune system). ? Medicines to help with lung function by reducing inflammation or scarring. Ongoing monitoring with X-rays and lab work. Oxygen therapy. Pulmonary rehabilitation. Surgery. In some cases, a lung transplant is possible. Follow these instructions at home: Medicines Take pudt-qzk-srzktaz and prescription medicines only as told by your health care provider. Keep your vaccinations up to date as recommended by your health care provider. General instructions Do not use any products that contain nicotine or tobacco, such as cigarettes and e-cigarettes. If you need help quitting, ask your health care provider. Get regular exercise, but do not overexert yourself. Ask your health care provider to suggest some activities that are safe for you to do. ? If you have physical limitations, you may get exercise by walking, using a stationary bike, or doing chair exercises. ? Ask your health care provider about using oxygen while exercising. If you are exposed to chemicals and substances at work, make sure that you wear a mask or respirator at all times. Join a pulmonary rehabilitation program or a support group for people with pulmonary fibrosis. Eat small meals often so you do not get too full. Overeating can make breathing trouble worse. Maintain a healthy weight. Lose weight if you need to. Do breathing exercises as directed by your health care provider. Keep all follow-up visits as told by your health care provider. This is important. Contact a health care provider if you: Have symptoms that do not get better with medicines. Are not able to be as active as usual. Have trouble taking a deep breath. Have a fever or chills. Have blue lips or skin. Have clubbing of your fingers. Get help right away if you: Have a sudden worsening of your symptoms. Have chest pain. Cough up mucus that is dark in color. Have a lot of headaches. Get very confused or sleepy. Summary Pulmonary fibrosis is a type of lung disease that causes scar tissue to build up in the air sacs ofyour lungs (alveoli) over time. Less oxygen can get into your blood. This makes it hard for you to breathe. Scarring from pulmonary fibrosis gets worse over time. This damage is permanent and may lead to other serious health problems. You are more likely to develop this condition if you have a family history of the condition or a job that exposes you to certain chemicals. There is no cure for pulmonary fibrosis. Treatment focuses on managing symptoms and preventing scarring from getting worse. This information is not intended to replace advice given to you by your health care provider. Make sure you discuss any questions you have with your health care provider. Document Released: 07/09/2004 Document Revised: 05/25/2018 Document Reviewed: 05/25/2018 [employer] Patient Education 2020 [employer]. Influenza (Flu) Vaccine (Inactivated or Recombinant): What You Need to Know 1. Why get vaccinated? Influenza vaccine can prevent influenza (flu). Flu is a contagious disease that spreads around the [place] every year, usually between January and August. Anyone can get the flu, but it is more dangerous for some people. Infants and young children, people 65 years of age and older, women, and people with certain health conditions ora weakened immune system are at greatest risk of flu complications. Pneumonia, bronchitis, sinus infections and ear infections are examples of flu- related complications. If you have a medical condition, such as heart disease, cancer or diabetes, flu can make it worse. Flu can cause fever and chills, sore throat, muscle aches, fatigue, cough, headache, and runny or stuffy nose. Some people may have vomiting and diarrhea, though this is more common in children than adults. Each year thousands of people in the [place] from flu, and many more are hospitalized. Flu vaccine prevents millions of illnesses and flu-related visits to the doctor each year. 2. Influenza vaccine CDC recommends everyone 6 months of age and older get vaccinated every flu season. Children 6 months through 8 years of age may need 2 doses during a single flu season. Everyone else needs only 1 dose each flu season. It takes about 2 weeks for protection to develop after vaccination. There are many flu viruses, and they are always changing. Each year a new flu vaccine is made to protect against three or four viruses that are likely to cause disease in the upcoming flu season. Even when the vaccine doesn't exactly match these viruses, it may still provide some protection. Influenza vaccine does not cause flu. Influenza vaccine may be given at the same time as other vaccines. 3. Talk with your health care provider Tell your vaccine provider if the person getting the vaccine: Has had an allergic reaction after a previous dose of influenza vaccine, or has any severe, life-threatening allergies. Has ever had Guillain Patel Syndrome (also called GBS). In some cases, your health care provider may decide to postpone influenza vaccination to a future visit. People with minor illnesses, such as a cold, may be vaccinated. People who are moderately or severely ill should usually wait until they recover before getting influenza vaccine. Your health care provider can give you more information. 4. Risks of a vaccine reaction Soreness, redness, and swelling where shot is given, fever, muscle aches, and headache can happen after influenza vaccine. There may be a very small increased risk of Guillain Patel Syndrome (GBS) after inactivated influenza vaccine (the flu shot). Young children who get the flu shot along with pneumococcal vaccine (PCV13), and/or DTaP vaccine atthe same time might be slightly more likely to have a seizure caused by fever. Tell your health care provider if a child who is getting flu vaccine has ever had a seizure. People sometimes faint after medical procedures, including vaccination. Tell your provider if you feel dizzy or have vision changes or ringing in the ears. As with any medicine, there is a very remote chance of a vaccine causing a severe allergic reaction, other serious injury, or . 5. What if there is a serious problem? An allergic reaction could occur after the vaccinated person leaves the clinic. If you see signs ofa severe allergic reaction (hives, swelling of the face and throat, difficulty breathing, a fast heartbeat, dizziness, or weakness), call and get the person to the nearest hospital. For other signs that concern you, call your health care provider. Adverse reactions should be reported to the Vaccine Adverse Event Reporting System (VAERS). Your health care provider will usually file this report, or you can do it yourself. Visit the VAERS websiteat www.vaers.hhs.gov or call .VAERS is only for reporting reactions, and VAERS staff do not give medical advice. 6. The National Vaccine Injury Compensation Program The National Vaccine Injury Compensation Program (VICP) is a federal program that was created to compensate people who may have been injured by certain vaccines. Visit the VICP website at www.hrsa.gov/vaccinecompensation or call to learn about the program and about filing a claim. There is a time limit to file a claim for compensation. 7. How can I learn more? Ask your healthcare provider. Call your local or state health department. Contact the Centers for Disease Control and Prevention (CDC): ? Call (0-071-TRW-INFO) or ? Visit CDC's www.cdc.gov/flu Vaccine Information Statement (Interim) Inactivated Influenza Vaccine (12/15/2018) This information is not intended to replace advice given to you by your health care provider. Make sure you discuss any questions you have with your health care provider. Document Released: 02/11/2007 Document Revised: 08/08/2019 Document Reviewed: 12/19/2018 Elsevier Patient Education 2020 [employer] Additional Information VACCINATE! IT SAVES LIVES! Members of the community who have not yet received the COVID-19 vaccine and would like to receive it can visit one of [facility] vaccine clinics. There are many vaccine clinic locations within the [facility]. For locations and available times, please visit https://gettheshot.coronavirus.[place].gov/. It is important to note that some COVID mobile vaccine clinics are held outdoors and may be canceled in rainy or stormy conditions. To learn more about pediatric vaccinations (ages 5-11), we invite you to visit the [facility] webpage. https://www.[facility].org/pages/0136-Tetzw-Zrbjurxdpka-Lcsaoxrhrz-Oavwa-Wmz stions.htmlTo learn more about the COVID-19 vaccine, we invite you to visit the CDC website for a list of frequently asked questions.https://www.cdc.gov/coronavirus/2019-ncov/vaccines/faq.html [employer] Patient Portal Access Instructions: Stay connected with your healthcare team and access your personal medical information anytime with the [facility] Patient Portal. Please follow the directions below to create your [employer] account: 1.Access the email account you provided upon registration to the hospital/physician office.2.Look for an invitation email from [facility].3.Open the email and access the invitation link: AcceptInvitation to [employer].4.Fill in the required reich to create your account. To access your account, visit [employer]. Click the blue button labeled Access Patient Portal and then log in with the username and password that you created in the steps above. You will be able to view your test results, lab results, a summary of your visits, upcoming appointments and more. There is also a convenient messaging option where you can send secure messages to your p harindervider. In addition, you will have the ability to download any documents or summaries to your computer and/or send the information securely to a physician. Remember that your healthcare information is confidential, so carefully consider who you will allowto register on the [facility] for access to your information. You can also access the [facility] on the [place] [facility] alix. Simply click on Patient Portal and then log into your account. If you would like to receive a full copy of your medical records, please contact the [facility] Medical Records Department by calling [phone], Wednesday through Wednesday between 8 a.m. and 4:30 p.m. HOW TO SAFELY DISPOSE OF PRESCRIPTION MEDICATIONS Please use one of the following methods to safely dispose of your unused medications. 1.Use a drug disposal kit: the drug disposal pouch allows you to safely discard your old and unuseddrugs. Ask your nurse to give you one when you are discharged.2.Visit a local take-back location: Many local pharmacies and police departments have programs that collect old and unwanted prescriptiondrugs. Call your local pharmacy or go to http://IZEA.flux - neutrinity/6U2En6j to find one close to you.3.Make use of household items: Use cat litter or old coffee grounds to dispose medications if other options arenot available. Mix your drugs with these household products, seal them in an airtight container andthrow it into the garbage. Call [facility]: [phone] to be sure your drugs can be disposed of in this way. Some medicines may require a different approach.4.Never flush your medications down the toilet. IF YOU HAVE BEEN PRESCRIBED AN OPIOID FOR PAIN If you have been prescribed an opioid (such as hydrocodone, oxycodone or morphine), it is critical to understand the possible side effects and risks of opioid pain medications. Even when taken as directed, opioids can have several side effects including: Tolerance, meaning you might need to take more of a medication for the same pain relief. Nausea, vomiting and/or constipation. Sleepiness, dizziness, dry mouth, confusion, depression or itching. Physical dependence, meaning you have withdrawal symptoms when a medication is stopped, can develop within a few days. KNOW YOUR RESPONSIBILITIES It is important to know exactly how much and how often to take the opioid pain medications you are prescribed. Never take opioids in higher amounts or more often than prescribed. Do not combine opioids with alcohol or other drugs that cause drowsiness, such as benzodiazepines, also known as benzos, including diazepam and alprazolam, muscle relaxants or sleep aids. Never sell or share prescription opioids. This is illegal. Store opioids in a secure place and out of reach of others (including children, family, friends and visitors). The last page of this document has been signed and retained as a CHART COPY. Signatures Patient Education Materials Pulmonary Fibrosis VIS, Influenza (Flu) Vaccine (Inactivated or Recombinant) - [facility] (12/15/2018) Medication Leaflets Fluad Quadrivalent PF [id number] My discharge plan and instructions have been reviewed and explained to me and I,SILVIO ADHIKARI understand my current condition and have read and understand these discharge instructions. I have received a written copy of the plan/instructions. If I have questions, I am aware that I should contact my doctor. 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 Over time, the scar tissue builds up in the air sacs of your lungs (alveoli). This makes it hard for you to breathe. Less oxygen canget into your blood. Scarring from pulmonary fibrosis gets worse over time. This damage is permanent and may lead to other serious health problems. What are the causes? There are many different causes of pulmonary fibrosis. Sometimes the cause is not known. This is called idiopathic pulmonary fibrosis. Other causes include: Exposure to chemicals and substances found in agricultural, farm, construction, or factory work. These include mold, asbestos, silica, metal dusts, and toxic fumes. Sarcoidosis. In this disease, areas of inflammatory cells (granulomas) form and most often affect the lungs. Autoimmune diseases. These include diseases such as rheumatoid arthritis, systemic sclerosis, or connective tissue disease. Taking certain medicines. These include drugs used in radiation therapy or used to treat seizures, heart problems, and some infections. What increases the risk? You are more likely to develop this condition if: You have a family history of the disease. You are older. The condition is more common in older adults. You have a history of smoking. You have a job that exposes you to certain chemicals. You have gastroesophageal reflux disease (GERD). What are the signs or symptoms? Symptoms of this condition include: Difficulty breathing that gets worse with activity. Shortness of breath (dyspnea). Dry, hacking cough. Rapid, shallow breathing during exercise or while at rest. Bluish skin and lips. Loss of appetite. Weakness. Weight loss and fatigue. Rounded and enlarged fingertips (clubbing). How is this diagnosed? This condition may be diagnosed based on: Your symptoms and medical history. A physical exam. You may also have tests, including: A test that involves looking inside your lungs with an instrument (bronchoscopy). Imaging studies of your lungs and heart. Tests to measure how well you are breathing (pulmonary function tests). Blood tests. Tests to see how well your lungs work while you are walking (pulmonary stress test). A procedure to remove a lung tissue sample to look at it under a microscope (biopsy). How is this treated? There is no cure for pulmonary fibrosis. Treatment focuses on managing symptoms and preventing scarring from getting worse. This may include: Medicines, such as: ?Steroids to prevent permanent lung changes. ?Medicines to suppress your body's defense system (immune system). ?Medicines to help with lung function by reducing inflammation or scarring. Ongoing monitoring with X-rays and lab work. Oxygen therapy. Pulmonary rehabilitation. Surgery. In some cases, a lung transplant is possible. Follow these instructions at home: Medicines Take gifc-vqk-drsgclf and prescription medicines only as told by your health care provider. Keep your vaccinations up to date as recommended by your health care provider. General instructions Do not use any products that contain nicotine or tobacco, such as cigarettes and e-cigarettes. If you need help quitting, ask your health care provider. Get regular exercise, but do not overexert yourself. Ask your health care provider to suggest some activities that are safe for you to do. ?If you have physical limitations, you may get exercise by walking, using a stationary bike, or doing chair exercises. ?Ask your health care provider about using oxygen while exercising. If you are exposed to chemicals and substances at work, make sure that you wear a mask or respirator at all times. Join a pulmonary rehabilitation program or a support group for people with pulmonary fibrosis. Eat small meals often so you do not get too full. Overeating can make breathing trouble worse. Maintain a healthy weight. Lose weight if you need to. Do breathing exercises as directed by your health care provider. Keep all follow-up visits as told by your health care provider. This is important. Contact a health care provider if you: Have symptoms that do not get better with medicines. Are not able to be as active as usual. Have trouble taking a deep breath. Have a fever or chills. Have blue lips or skin. Have clubbing of your fingers. Get help right away if you: Have a sudden worsening of your symptoms. Have chest pain. Cough up mucus that is dark in color. Have a lot of headaches. Get very confused or sleepy. Summary Pulmonary fibrosis is a type of lung disease that causes scar tissue to build up in the air sacs ofyour lungs (alveoli) over time. Less oxygen can get into your blood. This makes it hard for you to breathe. Scarring from pulmonary fibrosis gets worse over time. This damage is permanent and may lead to other serious health problems. You are more likely to develop this condition if you have a family history of the condition or a job that exposes you to certain chemicals. There is no cure for pulmonary fibrosis. Treatment focuses on managing symptoms and preventing scarring from getting worse. This information is not intended to replace advice given to you by your health care provider. Make sure you discuss any questions you have with your health care provider. Document Released: 07/09/2004 Document Revised: 05/25/2018 Document Reviewed: 05/25/2018 [employer] Patient Education 2020 [employer]. 03/22/2023 09:40:03 VIS, Influenza (Flu) Vaccine (Inactivated or Recombinant) - CDC (12/15/2018) Influenza (Flu) Vaccine (Inactivated or Recombinant): What You Need to Know 1. Why get vaccinated? Influenza vaccine can prevent influenza (flu). Flu is a contagious disease that spreads around the [place] every year, usually between January and August. Anyone can get the flu, but it is more dangerous for some people. Infants and young children, people 65 years of age and older, women, and people with certain health conditions ora weakened immune system are at greatest risk of flu complications. Pneumonia, bronchitis, sinus infections and ear infections are examples of flu- related complications. If you have a medical condition, such as heart disease, cancer or diabetes, flu can make it worse. Flu can cause fever and chills, sore throat, muscle aches, fatigue, cough, headache, and runny or stuffy nose. Some people may have vomiting and diarrhea, though this is more common in children than adults. Each year thousands of people in the [place] from flu, and many more are hospitalized. Flu vaccine prevents millions of illnesses and flu-related visits to the doctor each year. 2. Influenza vaccine CDC recommends everyone 6 months of age and older get vaccinated every flu season. Children 6 months through 8 years of age may need 2 doses during a single flu season. Everyone else needs only 1 dose each flu season. It takes about 2 weeks for protection to develop after vaccination. There are many flu viruses, and they are always changing. Each year a new flu vaccine is made to protect against three or four viruses that are likely to cause disease in the upcoming flu season. Even when the vaccine doesn't exactly match these viruses, it may still provide some protection. Influenza vaccine does not cause flu. Influenza vaccine may be given at the same time as other vaccines. 3. Talk with your health care provider Tell your vaccine provider if the person getting the vaccine: Has had an allergic reaction after a previous dose of influenza vaccine, or has any severe, life-threatening allergies. Has ever had Guillain Patel Syndrome (also called GBS). In some cases, your health care provider may decide to postpone influenza vaccination to a future visit. People with minor illnesses, such as a cold, may be vaccinated. People who are moderately or severely ill should usually wait until they recover before getting influenza vaccine. Your health care provider can give you more information. 4. Risks of a vaccine reaction Soreness, redness, and swelling where shot is given, fever, muscle aches, and headache can happen after influenza vaccine. There may be a very small increased risk of Guillain Patel Syndrome (GBS) after inactivated influenza vaccine (the flu shot). Young children who get the flu shot along with pneumococcal vaccine (PCV13), and/or DTaP vaccine atthe same time might be slightly more likely to have a seizure caused by fever. Tell your health care provider if a child who is getting flu vaccine has ever had a seizure. People sometimes faint after medical procedures, including vaccination. Tell your provider if you feel dizzy or have vision changes or ringing in the ears. As with any medicine, there is a very remote chance of a vaccine causing a severe allergic reaction, other serious injury, or . 5. What if there is a serious problem? An allergic reaction could occur after the vaccinated person leaves the clinic. If you see signs ofa severe allergic reaction (hives, swelling of the face and throat, difficulty breathing, a fast heartbeat, dizziness, or weakness), call and get the person to the nearest hospital. For other signs that concern you, call your health care provider. Adverse reactions should be reported to the Vaccine Adverse Event Reporting System (VAERS). Your health care provider will usually file this report, or you can do it yourself. Visit the VAERS websiteat www.vaers.hhs.gov or call .VAERS is only for reporting reactions, and VAERS staff do not give medical advice. 6. The National Vaccine Injury Compensation Program The National Vaccine Injury Compensation Program (VICP) is a federal program that was created to compensate people who may have been injured by certain vaccines. Visit the VICP website at www.hrsa.gov/vaccinecompensation or call to learn about the program and about filing a claim. There is a time limit to file a claim for compensation. 7. How can I learn more? Ask your healthcare provider. Call your local or state health department. Contact the Centers for Disease Control and Prevention (CDC): ?Call (1-800-CDC-INFO) or ?Visit CDC's www.cdc.gov/flu Vaccine Information Statement (Interim) Inactivated Influenza Vaccine (12/15/2018) This information is not intended to replace advice given to you by your health care provider. Make sure you discuss any questions you have with your health care provider. Document Released: 02/11/2007 Document Revised: 08/08/2019 Document Reviewed: 12/19/2018 [employer] Patient Education 2019 [employer] Follow Up Care 03/20/2023 13:08:57 With:FEROZ DON MD Address: [address] [place] [address] When: Unknown Comments:Call to schedule an appointment With:ZARA SWIFT DO Address: [address] [facility] [place] [address]- [phone] When:2-4 days Comments:Please call to schedule your post-hospital follow-up appointment. [facility] 11-20-2023 Respiratory therapy Hospital Progress note Patient ambulated aprox 75 feet on RA. Sp02 dropped to as low as 89% on RA. Pt at rest recovered to92% on RA Digitally Signed by ANTON LICEA RT on 03/22/2023 10:30 AM [facility]11-20-2023 Note. MICRO - Microbiology PROCEDURE: Streptococcus Pneumoniae Urine Antig [^1 *1] SOURCE: Urine BODY SITE: COLLECTED DATE/TIME: 03/20/2023 19:51 EST RECEIVED DATE/TIME: 03/21/2023 21:21 EST START DATE/TIME: 03/21/2023 21:21 EST FREE TEXT SOURCE: FINAL REPORTS Final Report [] Verified Date/Time/Personnel: 03/22/2023 01:12 EST Presumptive negative for pneumococcal pneumonia, suggesting no current or recent pneumococcal infection. Infection due to Strep pneumoniae cannot be ruled out since the antigen present in the sample may be below the detection limit of the test. Interpretive Data ^1: Streptococcus Pneumoniae Urine Antig This test has not been evaluated on patients taking antibiotics for greater than 24 hours or on patients who have recently completed an antibiotic regimen. The accuracy of this test has not been proven in young children. Performing Locations *1: This test was performed at: [address], [address] [place] [address])03-22-2023 Note. MICRO - Microbiology PROCEDURE: Legionella Urine Ag [*1] SOURCE: Urine BODY SITE: COLLECTED DATE/TIME: 03/20/2023 19:51 EST RECEIVED DATE/TIME: 03/21/2023 21:21 EST START DATE/TIME: 03/21/2023 21:21 EST FREE TEXT SOURCE: FINAL REPORTS Final Report [] Verified Date/Time/Personnel: 03/22/2023 01:12 EST Presumptive negative for L. pneumophila serogroup 1 antigen in urine, suggesting no recent or current infection. Legionnaire's disease cannot be ruled out since other serogroups and species may also cause disease. Performing Locations *1: This test was performed at: [address], [address] [place] [address] ([place])03-21-2023 Note Date of Service 03/21/2023 Chief Complaint shortness of breath Subjective Patient seen and evaluated this morning while resting in bed. She states that she is feeling a little better this morning. She has not been up without oxygen but states she has been back and forth tothe bathroom with the oxygen on and does not feel as winded as she has been. She also appears to have less conversational dyspnea this morning over yesterday. Patient advised that we are checking atypical causing of pneumonia as well as a respiratory panel. Those are still pending. She was updated that her white blood cell count decreased since yesterday despite getting steroids in the ED. We will continue the ceftriaxone for now. We will have respiratory perform an ambulatory pulse ox when patient is closer to discharge to see if she qualifies for home oxygen. The plan is to continue the current plan of care for today and possibly reassess later. Since patient has been dealing with this for a few weeks, she should probably stay until tomorrow to continue IV antibiotics. Patient is agreeable to plan. Patient denies any fever, chills, chest pain, abdominal pain, nausea or dysuria. Daugh ter at the bedside and updated. All questions answered. Objective Vitals and Measurements T: 36.5 C (Oral) TMIN: 36.3 C (Oral) TMAX: 36.5 C (Oral) HR: 66(Monitored) RR: 20 BP: 139/75 SpO2: 98% HT: 160 cm WT: 56.9 kg BMI: 22.46 Intake and Output 7AM Yesterday to 7AM Today Intake and Output (Last 24 hours) Intake Oral Intake 350.00 Output Stool Volume 0.00 Urine Voided 550.00 Urine Count 2.00 Emesis Count 0.00 Total Summary Total Intake 350.00 Total Output 550.00 Fluid Balance -200.00 Physical Exam General: No acute distress. Patient is alert and appropriate. Skin: No rash. Skin is warm, dry and intact. HEENT: Head is normocephalic, atraumatic. Pupils are equal, round and reactive. Neck: Supple. No lymphadenopathy, thyromegaly. Lungs: Bilaterally clear but diminished without crepitation or wheeze. Mild conversational dyspnea. Heart: Heart is regular rhythm, S1, S2. No murmurs, gallops or rubs. Abdomen: Abdomen is soft, nontender. Bowels sounds present in all quadrants. Extremities: No clubbing, cyanosis, or edema. Peripheral pulses palpable. No calf tenderness. Neurological: Patient is awake and alert to person, place and time. Following simple commands, moving all extremities. Weight Current Weight Dosing Weight: 57.5 kg (03/20/23) Current Weight: 56.9 kg (03/21/23) Dosing Weight: 57.5 kg (03/20/23) Medications Medications (20) Active Scheduled: (12) albuterol - ipratropium 2.5 mg-0.5 mg/3 mL Inhal Jolynn UD 3 mL, Inhalation, QIDRT amLODIPine 5 mg tablet 5 mg 1 tab(s), Oral, qDay cefTRIAXone 1 g, IV Piggyback, qDay enoxaparin 40 mg/ 0.4mL syringe 40 mg 0.4 mL, Subcutaneous, qDay hydrochlorothiazide 25 mg tablet 25 mg 1 tab(s), Oral, qDay influenza virus vaccine, inactivated adjuvanted preservative-free quadrivalent Susp (Fluad) 0.5 mL,Intramuscular, Vaccine-day 2 lisinopril 20 mg tablet 20 mg 1 tab(s), Oral, qDay methylPREDNISolone succ 40mg (40 mg/1mL) after dilution 40 mg 1 mL, IV Push, q12h nitrofurantoin macrocrystals-MONOHYDRATE 100 mg Capsule 100 mg 1 cap(s), Oral, qPM pantoprazole 20 mg EC tablet 40 mg 2 tab(s), Oral, qDayAC potassium chloride 10 mEq ER capsule 20 mEq 2 cap(s), Oral, Daily potassium chloride 20 mEq ER tablet 20 mEq 1 tab(s), Oral, Once Continuous: (0) PRN: (8) acetaminophen 325 mg Tablet 650 mg 2 tab(s), Oral, q4h acetaminophen 325 mg Tablet 650 mg 2 tab(s), Oral, q4h albuterol - ipratropium 2.5 mg-0.5 mg/3 mL Inhal Jolynn UD 3 mL, Inhalation, q4hRT benzonatate 100 mg Capsule 100 mg 1 cap(s), Oral, TID calcium carbonate 500 mg Chewable 500 mg 1 tab(s), Chewed, TID guaifenesin 100 mg/5 mL Liquid SUGAR-FREE 120 mL 200 mg 10 mL, Oral, q4h melatonin 3 mg tablet 6 mg 2 tab(s), Oral, qHS ondansetron 2 mg/ 1 mL 2 mL INJ 4 mg 2 mL, IV Push, q4h Lab Results 03/21 06:07 WBC: 11.6 H Hgb: 14.7 Hct: 43.5 Platelet: 209 Neutrophil %: 77.4 Glucose Level: 116 H Sodium Level: 141 Potassium Level: 3.3 L BUN: 21 H Creatinine Lvl (s): 0.95 03/20 13:32 WBC: 14.8 H Hgb: 16.0 Hct: 46.8 Platelet: 237 Neutrophil %: 75.0 Glucose Level: 108 Sodium Level: 139 Potassium Level: 3.5 BUN: 16 Creatinine Lvl (s): 0.83 Imaging Results and Diagnostics XR Chest 2 Views Result Date: March 20, 2023 Verified By: GISELLE BRANTLEY MD CLINICAL STATEMENT: IMPRESSION: Interstitial disease left greater than right, similar to the comparison. EKG EKG [ED AO] - Completed -- 03/20/23 13:21:00 EST, Now, 03/20/23 13:21:00 EST Assessment/Plan 1. Pulmonary fibrosis Acute on chronic, in exacerbation, improving. Patient noted to be 82% on room air on arrival to theED, improved with 2L of supplemental oxygen. Patient reports 6 months of progressive shortness of breath but much worse yesterday. Expiratory wheezes auscultated in the ED, clear but diminished this morning. Mild conversational dyspnea noted today but improved from yesterday. Mild leukocytosis, however, patient has been on steroids since 02/26 so may be due to that rather than infection, however,decreased today even with IV steroids yesterday. Patient denies any fevers or sputum production. Will continue methylprednisone 40 mg IV BID. Continue Ceftriaxone 1 gram IV daily. Continue duoneb aerosols as needed and scheduled. Continue supplemental oxygen as needed to maintain oxygen saturationsabove 92% - wean as able. Check urine for legionella and strep pneumoniae - pending. Check respiratory ID panel - pending. Repeat CBC and BMP. 2. Shortness of breath Acute on chronic, worsening today. Plan as above. 3. Hypertension Chronic. Continue current antihypertensives. SBP goal of 140 or less. 4. Macular degeneration Chronic. Continue eye vitamin. DVT prophylaxis with Lovenox sc. Code status: Full Code. Labs, diagnostic test and progress notes reviewed as noted in HPI. Plan of care discussed with patient. All questions answered. Patient verbalizes understanding and is agreeable with plan of care. This case was discussed with collaborating physician, Dr. Wale German. Time Spent 35 minutes spent reviewing past diagnostic tests, reviewing lab results, vital sign trends, medicalhistory, reviewing medications and ordering home medications, examining patient, discussed plan of care with nursing, collaborating with physician, and documenting in chart. Digitally Signed by TIM YUAN on 03/21/2023 09:31 AM [facility]11-18-2023 HCoV 229E RNA CONY+non-probe Ql (Nph) Not Detected *NA* (03/20/23 5:55 PM)AH Auto Viro/Sero [id number] Note Date of Service 03/20/2023 Chief Complaint Issues with breathing x6 months. More short of breath today. History of Present Illness Patient is an 82-year-old female, who follows with Dr. Zraa Swift with a past medical history significant for pulmonary fibrosis, hypertension, GERD, SLE, and macular degeneration, presents to [facility] emergency department with the chief complaint of shortness of breath. Patienthas a history of pulmonary fibrosis and states that she has been feeling more short of breath over the last 6 months. She saw her PCP on 02/26 and was started on azithromycin for 5 days as well as prednisone. Dr. Swift encouraged patient to follow-up with Dr. Feroz Don, pulmonology, which patient did on 03/12/2023. She states that she was started on Augmentin and given another course of steroids by Dr. Don's [employer]IST. Patient states that this has not helped much and today she felt much worse.She states she is not short of breath all the time but, when she walks, she has to sit and rest a while. She denies any fever, chills, chest pain, abdominal pain, nausea or dysuria. She has had a drycough for a while. In the emergency department, chest x-ray revealed interstitial disease left greater than right, similar to prior. EKG reveals sinus rhythm with right atrial enlargement. White blood cell count 14.8. CBC and BMP otherwise unremarkable. Troponin and ProBNP negative. Patient was administered 500 cc NS, 1 gram Ceftriaxone IV and 62.5 mg methylprednisone IV in the ED. Patient was noted to be 82% on room air on arrival to the ED. Her oxygen saturations improved with supplemental oxygen. The case was discussed with the ED physician who recommended admission for antibiotics, steroids and aerosols. Patient will be transferred to medical surgical unit for observation. We will continue Ceftriaxone 1 gram IV daily. We will continue methylprednisone 40 mg IV BID as well as duoneb aerosols as needed and scheduled. We will check urine for legionella and strep pneumonia. We will check a respiratory ID panel. Continue supplemental oxygen as needed to maintain oxygen saturations greater than 92%. We will perform an ambulatory pulse ox on patient prior to discharge to attempt to qualify for her home oxygen. Repeat CBC and BMP in the am. Patient seen and evaluated in the ED while resting in bed. She states that, while resting in bed, she does not feel too bad. She remains on 2L of oxygen with acceptable oxygen saturations. She has a faint expiratory wheeze noted on auscultation. Discussed the plan of care with patient and she was agreeable to admission and plan of care. All questions answered. Daughter at bedside and denies any questions. Review of Systems Review of Systems: Reviewed in detail, including general health, HEENT, cardiovascular, respiratory, gastrointestinal, genitourinary, endocrine, musculoskeletal, neurologic, vascular, skin, and psychiatric. All are negative except for those listed in the History of Present Illness. Physical Exam Vitals and Measurements T: 36.3 C (Oral) HR: 90 RR: 31 BP: 129/71 SpO2: 92% No qualifying data available. General: No acute distress. Patient is alert and appropriate. Skin: No rash. Skin is warm, dry and intact. HEENT: Head is normocephalic, atraumatic. Pupils are equal, round and reactive. Neck: Supple. No lymphadenopathy, thyromegaly. Lungs: Faint expiratory wheezes noted anteriorly. Mildly labored with conversation. Heart: Heart is regular rhythm, S1, S2. No murmurs, gallops or rubs. Abdomen: Abdomen is soft, nontender. Bowels sounds present in all quadrants. Extremities: No clubbing, cyanosis, or edema. Peripheral pulses palpable. No calf tenderness. Neurological: Patient is awake and alert to person, place and time. Following simple commands, moving all extremities. Lab Results 03/20 13:32 WBC: 14.8 H Hgb: 16.0 Hct: 46.8 Platelet: 237 Neutrophil %: 75.0 Glucose Level: 108 Sodium Level: 139 Potassium Level: 3.5 BUN: 16 Creatinine Lvl (s): 0.83 Imaging Results and Diagnostics XR Chest 2 Views Result Date: March 20, 2023 Verified By: GISELLE BRANTLEY MD CLINICAL STATEMENT: IMPRESSION: Interstitial disease left greater than right, similar to the comparison. EKG EC03/20/23: Sinus rhythm Left atrial enlargement Abnormal R-wave progression, late transition Inferior infarct, old Electronic Signature: SARAH HARTLEY DO 03/20/2023 15:15:13 Assessment/Plan 1. Pulmonary fibrosis Acute on chronic, in exacerbation. Patient noted to be 82% on room air on arrival to the ED, improved with 2L of supplemental oxygen. Patient reports 6 months of progressive shortness of breath but much worse today. Expiratory wheezes auscultated in the ED. Mild conversational dyspnea noted. Mild le ukocytosis, however, patient has been on steroids since 02/26 so may be due to that rather than infection. Patient denies any fevers. Will continue methylprednisone 40 mg IV BID. Continue Ceftriaxone1 gram IV daily. Continue duoneb aerosols as needed and scheduled. Continue supplemental oxygen as needed to maintain oxygen saturations above 92% - wean as able. Check urine for legionella and streppneumoniae. Check respiratory ID panel. Repeat CBC and BMP. 2. Shortness of breath Acute on chronic, worsening today. Plan as above. 3. Hypertension Chronic. Continue current antihypertensives. SBP goal of 140 or less. 4. Macular degeneration Chronic. Continue eye vitamin. DVT prophylaxis with Lovenox. Code status: Full Code. Labs, diagnostic test and progress notes reviewed as noted in HPI. Plan of care discussed with patient. All questions answered. Patient verbalizes understanding and is agreeable with plan of care. This case was discussed with collaborating physician, Dr. Wale German. 75 minutes spent reviewing past diagnostic tests, reviewing lab results, vital sign trends, medicalhistory, reviewing medications and ordering home medications, examining patient, reviewed notes from PCP as well as past lab results and imaging, collaborating with physician, and documenting in chart. Problem List/Past Medical History Ongoing Diverticulosis Elevated liver enzymes GERD (gastroesophageal reflux disease) Hepatitis Herpes zoster Hypertension Immunocompromised state Internal hemorrhoids Iron deficiency Liver fibrosis Macular degeneration Osteopenia Other chronic cystitis without hematuria Overactive bladder Peripheral edema Positive P-ANCA titer Postmenopausal atrophic vaginitis Pulmonary fibrosis Recurrent UTI SLE (systemic lupus erythematosus) Tubular adenoma Vitamin D deficiency Historical Decreased GFR Petechial eruption Rash Urinary tract infection Procedure/Surgical History Cataracts: 07/17/21 Cataracts: 07/01/21 Colonoscopy: 12/2020 Fracture of bone Abdominal hysterectomy Medications Home Medications (12) Active albuterol MDI (90 mcg/inh) CFC free inhalation aerosol 1 puff(s), PRN, Inhalation, q4h amLODIPine 5 mg oral tablet 5 mg = 1 tab(s), Oral, qDay calcium (as carbonate) 600 mg oral tablet 600 mg = 1 tab(s), Oral, BIDM ferrous sulfate Unknown Strength (NEEDS CLARIFIED), Oral Flonase 50 mcg/inh nasal spray 1 spray(s), Nostril, each, qAM hydrochlorothiazide-lisinopril 25 mg-20 mg oral tablet See Instructions magnesium chloride nitrofurantoin macrocrystals-monohydrate 100 mg oral capsule 100 mg = 1 cap(s), Oral, qDay omeprazole 40 mg oral delayed release capsule 40 mg = 1 cap(s), Oral, qDay potassium chloride 10 mEq oral capsule, extended release See Instructions predniSONE 10 mg oral tablet See Instructions PreserVision AREDS 2 1 tab(s), Oral, BID Allergies NKA Social History Smoking Status - 01/07/2016 Never smoker Alcohol Use: Never., 12/24/2018 Employment/School Status: Retired., 12/02/2022 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 Spouse Name: Anand., 12/02/2022 Nutrition/Health Caffeine intake amount: 2 servings per day., 01/26/2019 Substance Abuse Use: Never., 12/24/2018 Tobacco Tobacco Use: Never (less than 100 in lifetime)., 01/26/2019 Family History Alzheimer's disease: Sister. Arthritis: Mother. Cancer: Mother and Brother. Cerebrovascular accident: Sister and Brother. Dementia: Mother. Hyperlipidemia: Mother. Hypertension: Mother, Father, Sister and Brother. Myocardial infarction: Brother and Grandparent. Immunizations pneumococcal 13-valent conjugate vaccine: 0 unknown unit (10/23/14) pneumococcal 23-valent vaccine(Pneumovax: 0.5 unknown unit (10/27/18) pneumococcal 23-valent vaccine(Pneumovax: 0 unknown unit (03/30/05) SARS-CoV-2 (COVID-19) mRNA-1273 vaccine: 0.25 unknown unit (09/23/21) SARS-CoV-2 (COVID-19) mRNA-1273 vaccine: 0.25 unknown unit (04/02/21) SARS-CoV-2 (COVID-19) mRNA-1273 vaccine: 100 mcg (06/24/20) SARS-CoV-2 (COVID-19) mRNA-1273 vaccine: 0 unknown unit (05/27/20) tetanus/diphth/pertuss (Tdap) adult/adol: 0 unknown unit (06/19/11) Code Status Code Status - Ordered -- 03/20/23 15:19:00 EST, Full Code, Constant Order Digitally Signed by TIM YUAN on 03/20/2023 03:55 PM [facility]11-18-2023 Evaluation + Plan noteExtracted from: Title:History and Physical Author:TIM YUAN APRN-[employer]ER Date:03/20/23 1. Pulmonary fibrosis Acute on chronic, in exacerbation. Patient noted to be 82% on room air on arrival to the ED, improved with 2L of supplemental oxygen. Patient reports 6 months of progressive shortness of breath but much worse today. Expiratory wheezes auscultated in the ED. Mild conversational dyspnea noted. Mild leukocytosis, however, patient has been on steroids since 02/26 so may be due to that rather than infection. Patient denies any fevers. Will continue methylprednisone 40 mg IV BID. Continue Ceftriaxone 1 gram IV daily. Continue duoneb aerosols as needed and scheduled. Continue supplemental oxygen as needed to maintain oxygen saturations above 92% - wean as able. Check urine for legionella and strep pneumoniae. Check respiratory ID panel. Repeat CBC and BMP. 2. Shortness of breath Acute on chronic, worsening today. Plan as above. 3. Hypertension Chronic. Continue current antihypertensives. SBP goal of 140 or less. 4. Macular degeneration Chronic. Continue eye vitamin. DVT prophylaxis with Lovenox. Code status: Full Code. Labs, diagnostic test and progress notes reviewed as noted in HPI. Plan of care discussed with patient. All questions answered. Patient verbalizes understanding and is agreeable with plan of care. This case was discussed with collaborating physician, Dr. Wale German. 75 minutes spent reviewing past diagnostic tests, reviewing lab results, vital sign trends, medical history, reviewing medications and ordering home medications, examining patient, reviewed notes from PCP as well as past lab results and imaging, collaborating with physician, and documenting in chart. Future Appointments Appointment Date:08/27/2023 11:30:00 AM Scheduled Provider:ZARA SWIFT DO Location:[facility] Appointment Type:PC OV Future Scheduled Tests Radiology* MA Mammo Screening Bilateral w/ Ruiz 06/18/22 [facility] 11-18-2023 Note ORIGINAL HISTORY: Chest pain COMPARISON: 10 Sep 2022 FINDINGS: The lateral view is nondiagnostic. There are peripheral interstitial changes throughout both lungs, more prominently on the left. Pulmonary vasculature is grossly unremarkable. IMPRESSION: Interstitial disease left greater than right, similar to the comparison. Interpreted by: Giselle Brantley MD Preliminary Report By: Giselle Brantley MD Electronically signed By Giselle Brantley MD Dictated Date: 03/20/2023 2:46:07 PM Prelim Date: 03/20/2023 2:46:50 PM Sign Date: 03/20/2023 2:46:50 PM Ordering Provider: SARAH [facility]11-18-2023 Note Sinus rhythm Left atrial enlargement Abnormal R-wave progression, late transition Inferior infarct, old Electronic Signature: SARAH HARTLEY DO 03/20/2023 15:15:13[facility] 05-05-2023 Note. MICRO - Microbiology PROCEDURE: Urine Culture [*1] SOURCE: Urine, Clean Catch BODY SITE: COLLECTED DATE/TIME: 09/03/2022 11:52 EDT RECEIVED DATE/TIME: 09/03/2022 19:42 EDT START DATE/TIME: 09/03/2022 19:42 EDT FREE TEXT SOURCE: FINAL REPORTS Final Report [] Verified Date/Time/Personnel: 09/04/2022 15:09 EDT <10,000 cfu/ml. No Significant growth. Sensitivity not indicated. Performing Locations *1: This test was performed at: [facility], [address] [place] [address], [facility] , [facility] ([place])11-07-2021 Note ORIGINAL EXAMINATION: BONE DENSITOMETRY11/07/2021 9:05 am TECHNIQUE: Dual energy bone densitometry lumbar spine and left hip. COMPARISON: 07/10/2019 HISTORY: Reason for Exam: screening Osteoporosis screening. FINDINGS: Total bone mineral density of the L1-L4 is 1.105 grams per square centimeters, and T-score being 0.5, indicating that this patient has normal bone mineral density. This represents 4.5% decrease in mineralization of the lumbar spine since the last study. Bone mineral density of the left femoral neck is 0.673 grams per square centimeters, and T-score being -1.6, indicating that this patient has osteopenia. Total bone mineral density of the left hip is 0.832 grams per square centimeters, and T-score being -0.9, indicating that this patient has normal bone mineral density. This represents 2% increase in mineralization since the last study. FRAX score: 10 year risk major osteoporotic fracture is 14%. 10 year risk hip fracture is 3.5%. IMPRESSION: Osteopenia. I have personally reviewed the images of this examination and agree with the resident's findings and interpretation. Interpreted by: Yu Burk MD Preliminary Report By: Romel Daly Electronically signed By Yu Burk MD Dictated Date: 11/07/2021 9:16:45 AM Prelim Date: 11/07/2021 1:48:36 PM Sign Date: 11/07/2021 1:48:36 PM Ordering Provider: ZARA SWIFT [facility]07-08-2022 Note ORIGINAL EXAMINATION: BONE DENSITOMETRY11/07/2021 9:05 am TECHNIQUE: Dual energy bone densitometry lumbar spine and left hip. COMPARISON: 07/10/2019 HISTORY: Reason for Exam: screening Osteoporosis screening. FINDINGS: Total bone mineral density of the L1-L4 is 1.105 grams per square centimeters, and T-score being 0.5, indicating that this patient has normal bone mineral density. This represents 4.5% decrease in mineralization of the lumbar spine since the last study. Bone mineral density of the left femoral neck is 0.673 grams per square centimeters, and T-score being -1.6, indicating that this patient has osteopenia. Total bone mineral density of the left hip is 0.832 grams per square centimeters, and T-score being -0.9, indicating that this patient has normal bone mineral density. This represents 2% increase in mineralization since the last study. FRAX score: 10 year risk major osteoporotic fracture is 14%. 10 year risk hip fracture is 3.5%. IMPRESSION: Osteopenia. I have personally reviewed the images of this examination and agree with the resident's findings and interpretation. Interpreted by: Yu Burk MD Preliminary Report By: Romel Daly Electronically signed By Yu Burk MD Dictated Date: 11/07/2021 9:16:45 AM Prelim Date: 11/07/2021 1:48:36 PM Sign Date: 11/07/2021 1:48:36 PM [facility]ing [facility] Future Appointments Appointment Date:04/08/2021 09:40:00 AM Scheduled Provider:ZARA SWIFT DO Location:[facility] Appointment Type:PC OV Appointment Date:07/03/2021 09:00:00 AM Scheduled Provider:ZARA SWIFT DO Location:[facility] Appointment Type:PC OV Future Scheduled Tests Radiology* BD Bone Density DEXA Axial Skeleton 06/04/20 * XR Chest 2 Views (PA & Lateral) 02/11/21 * XR Chest 2 Views (PA & Lateral) 02/13/21 [facility] Evaluation + Plan note Future Appointments Appointment Date:02/28/2021 04:00:00 PM Scheduled Provider:ZARA SWIFT DO Location:[facility] Appointment Type:PC Acute Appointment Date:04/08/2021 09:40:00 AM Scheduled Provider:ZARA SWIFT DO Location:[facility] Appointment Type:PC OV Appointment Date:07/03/2021 09:00:00 AM Scheduled Provider:ZARA SWIFT DO Location:[facility] Appointment Type:PC OV Future Scheduled Tests Radiology* BD Bone Density DEXA Axial Skeleton 06/04/20 * XR Chest 2 Views (PA & Lateral) 02/11/21 * XR Chest 2 Views (PA & Lateral) 03/16/21 [facility] Evaluation + Plan note Future Appointments Appointment Date:04/08/2021 09:40:00 AM Scheduled Provider:ZARA SWIFT DO Location:[facility] Appointment Type:PC OV Appointment Date:07/03/2021 09:00:00 AM Scheduled Provider:ZARA SWIFT DO Location:[facility] Appointment Type:PC OV Future Scheduled Tests Radiology* BD Bone Density DEXA Axial Skeleton 06/04/20 * XR Chest 2 Views (PA & Lateral) 02/11/21 * XR Chest 2 Views (PA & Lateral) 03/16/21 [facility] Evaluation + Plan note Future Appointments Appointment Date:07/31/2021 10:00:00 AM Scheduled Provider:ZARA SWIFT DO Location:[facility] Appointment Type:PC OV Future Scheduled Tests Radiology* XR Chest 2 Views (PA & Lateral) 02/11/21 * XR Chest 2 Views (PA & Lateral) 03/16/21 [facility] Evaluation + Plan note Future Appointments Appointment Date:01/29/2022 10:00:00 AM Scheduled Provider:ZARA SWIFT DO Location:[facility] Appointment Type:PC OV Follow Up Future Scheduled Tests Radiology* XR Chest 2 Views (PA & Lateral) 02/11/21 * XR Chest 2 Views (PA & Lateral) 03/16/21 [facility] Evaluation + Plan note Future Appointments Appointment Date:02/26/2023 11:00:00 AM Scheduled Provider:ZARA SWIFT DO Location:[facility] Appointment Type:PC OV Future Scheduled Tests Radiology* MA Mammo Screening Bilateral w/ Ruiz 06/18/22 [facility] Evaluation + Plan note Future Appointments Appointment Date:08/27/2023 11:30:00 AM Scheduled Provider:ZARA SWIFT DO Location:[facility] Appointment Type:PC OV Future Scheduled Tests Radiology* MA Mammo Screening Bilateral w/ Ruiz 06/18/22 [facility] evaluation + Plan note Future Appointments Appointment Date:05/07/2023 11:30:00 AM Scheduled Provider:ZARA SWIFT DO Location:[facility] Appointment Type:PC OV Appointment Date:08/27/2023 11:30:00 AM Scheduled Provider:ZARA SWIFT DO Location:[facility] Appointment Type:PC OV Future Scheduled Tests Radiology* MA Mammo Screening Bilateral w/ Ruiz 06/18/22 * NM Myocardial Spect Rest/Stress 04/22/23 [facility] evaluation + Plan note Future Appointments Appointment Date:06/22/2023 11:00:00 AM Scheduled Provider: Location:[facility] Appointment Type:CV OV Appointment Date:08/27/2023 11:30:00 AM Scheduled Provider:ZARA SWIFT DO Location:[facility] Appointment Type:PC OV Future Scheduled Tests Laboratory* Basic Metabolic Panel 06/14/23 * N-Terminal proBNP 06/14/23 Radiology* MA Mammo Screening Bilateral w/ Ruiz 06/18/22 [facility] Hospital course Narrative No data available for this section [facility] Hospital Discharge instructions No data available for this section [facility] Progress note No data available for this section [facility] Summary Purpose Family History No Family History Records Found Advance Directives No Advanced Directives Records Found Additional Source Comments Care Team (unrecognized sect ion and content) Care Team Personnel Name: ZARA SWIFT DO Position: P4 Physician - Primary Care Med Service: Active Provider Member Role: Primary Care Physician Address: Address: [address] [place] [address] Care Team Related Persons Name: SYLVIE SANCHEZ Name: ANAND ADHIKARI Address: Home [address] [place] [phone] Patient Care team informatio n (unrecognized section and content) Care Team Personnel Name: ZARA SWIFT DO Position: P4 Physician - Primary Care Member Role: Primary Care Physician Address: Address: [address] [place] [address] Care Team Related Persons Name: SYLVIE SANCHEZ Care Team Personnel Name: ZARA SWIFT DO Position: P4 Physician - Primary Care Member Role: Primary Care Physician Address: Address: [address] [place] [address] Care Team Related Persons Name: SYLVIE SANCHEZ Care Team Personnel Name: ZARA SWIFT DO Position: P4 Physician - Primary Care Member Role: Primary Care Physician Address: Address: [address] [place] [id number]- [place] Care Team Related Persons Name: SYLVIE SANCHEZ Care Team Personnel Name: ZARA SWIFT DO Position: P4 Physician - Primary Care Member Role: Primary Care Physician Address: Address: [address] [place] [address] Care Team Related Persons Name: SYLVIE SANCHEZ Care Team Personnel Name: ZARA SWIFT DO Position: P4 Physician - Primary Care Member Role: Primary Care Physician Address: Address: [address] [place], [place] [id number] [[email or web address] Name: SARAH HARTLEY DO Position: ED Physician Member Role: ED Physician Address: Address: [place] [id number]- Care Team Related Persons Name: SYLVIE SANCHEZ Care Team Personnel Name: ZARA SWIFT DO Position: P4 Physician - Primary Care Member Role: Primary Care Physician Address: Address: [address] [place], [place] [id number]- Care Team Related Persons Name: SYLVIE SANCHEZ Care Team Personnel Name: ZARA SWIFT DO Position: P4 Physician - Primary Care Member Role: Primary Care Physician Address: Address: [address] [place] [address] Care Team Related Persons Name: SYLVIE SANCHEZ Care Team Personnel Name: ZARA SWIFT DO Position: P4 Physician - Primary Care Member Role: Primary Care Physician Address: Address: [address] [place], [place] [id number]- Care Team Related Persons Name: SYLVIE SANCHEZ INFORMATION SOURCE (unrecogn ized section and content) FOR RECORDS PERTAINING TO PATIENTS WHO ARE OR HAVE BEEN ENROLLED IN A CHEMICAL DEPENDENCY/SUBSTANCEABUSE PROGRAM, SOME INFORMATION MAY BE OMITTED. This clinical summary was aggregated from multiple sources. Caution should be exercised in using it in the provision of clinical care. This summary normalizes information from multiple sources, and as a consequence, information in this document may materially change the coding, format and clinical context of patient data. In addition, data may be omitted in some cases. CLINICAL DECISIONS SHOULD BE BASED ON THE PRIMARY CLINICAL RECORDS. [facility] [employer] [facility]. provides no warranty or guarantee of the accuracy or completeness of information in this document.
== END | disposition home or self-care (01) ==
PROVIDERS: Referring Provider Nurse Practitioner Acute Care; Visit Provider Nurse Practitioner Acute Care
DX: G47.33 Obstructive sleep apnea (adult) (pediatric) (principal)
CPT/HCPCS: 95810